=== PATIENT | male | born 1960 | race Two or more races ===

== ENCOUNTER 2024-11-06 06:05 | Inpatient (IN) | payer MEDICAID, SELFPAY ==
[2024-11-06] VITALS (14 sets, daily range): BP systolic 132–194; BP diastolic 86–111; PULSE 88–115; RESP 16–25; TEMP 36.5–36.7; O2SAT 94–98; BMI 31.9; BMI 30.1
--- NOTE | 2024-11-06 06:31 | PD.EDSOB ---
ED SOB =RME/HPI General Chief Complaint: Shortness of Breath/Dyspnea Stated Complaint: DIFFICULTY BREATHING Time Seen by Provider: 11/06/24 06:25 Source: patient Arrival date/time: 11/06/24 06:05 64-year-old male with a history of hypertension presents to the emergency room with a chief complaint of facial swelling and difficulty breathing since yesterday afternoon. Mode of arrival: ambulatory Limitations: no limitations Related Data Previous Rx's ?Medication ?Instructions ?Recorded methocarbamol 750 mg tablet 750 mg PO TID #10 tabs 02/11/20 (Robaxin-750) naproxen 500 mg tablet 500 mg PO BID PRN pain #20 tabs 02/11/20 Allergies Allergy/AdvReac Type Severity Reaction Status Date / Time rivastigmine Allergy Severe BLISTERS/RA Verified 11/06/24 06:10 SH/ITCHING ELECTOR PATCHES Allergy Severe BLISTERS/RA Uncoded 11/06/24 06:10 SH/ITICHING ED Exam General Limitations: Present no limitations Course Orders Category Date Time Status Dexamethasone Inj [Decadron Inj] Med 11/06/24 06:29 Once 10 mg PO X1 ONE DiphenhydrAMINE [Benadryl] Med 11/06/24 06:29 Once 25 mg PO X1 ONE Famotidine [Pepcid] Med 11/06/24 06:29 Once 20 mg PO X1 ONE Vital Signs Vital signs: Vital Signs Temperature 98.0 F 11/06/24 06:28 Pulse Rate 109 H 11/06/24 06:28 Respiratory Rate 20 11/06/24 06:28 Blood Pressure 194/97 H 11/06/24 06:28 Pulse Oximetry (%) 95 11/06/24 06:28 Oxygen Delivery Method Room Air 11/06/24 06:28 Shortness of Breath / Dyspnea Medications / Prescriptions Medication administrations:: Medication Administration History Dexamethasone Sodium Phosphate (Dexamethasone Sod Phos Inj 10 Mg/Ml Vial) 10 mg PO X1 ONE Stop: 11/06/24 06:30 Diphenhydramine HCl (Diphenhydramine Elix 25 Mg/10 Ml Udc) 25 mg PO X1 ONE Stop: 11/06/24 06:30 Famotidine (Famotidine 20 Mg Tablet) 20 mg PO X1 ONE Stop: 11/06/24 06:30 Discharge Plan Prescriptions/Referrals Prescriptions/Med Rec: No Action methocarbamol [Robaxin-750] 750 mg tablet 750 mg PO TID Qty: 10 0RF naproxen 500 mg tablet 500 mg PO BID PRN (Reason: pain) Qty: 20 0RF Patient/Caregiver Discharge Instructions Print Language: Namibian
[2024-11-06] MEDS: FAMOTIDINE 20 MG TABLET PO ×2 (07:53→21:25)
[2024-11-06] MEDS: DiphenhydrAMINE ELIX 25 MG/10 ML UDC PO (07:53)
[2024-11-06] MEDS: DEXAMETHASONE SOD PHOS INJ 10 MG/ML VIAL PO (07:53)
--- NOTE | 2024-11-06 08:39 | XR_ITS ---
Examination: PA lateral chest 2 views TECHNIQUE: Upright PA lateral chest 2 views Exam date and time: November 06, 2024 0848 hours INDICATIONS: Shortness of breath chest pain beginning 3 days ago FINDINGS: Mild CHF Mild enlargement cardiac contour with prominent vascular congestion and septal pulmonary edema Bilateral subsegmental atelectasis IMPRESSION: Mild CHF
[2024-11-06 10:11] LABS: Basophils # (Auto) 0.1 Thou/mm3 (0.0-0.2); Basophils % (Auto) 1 % (0-2.5); Eosinophils # (Auto) 0.1 Thou/mm3 (0.0-0.5); Eosinophils % (Auto) 1 % (0-10); Hematocrit 42.7 % (41.0-53.0); Hemoglobin 15.4 g/dL (13.5-16.0); Immature Granulocytes % (Auto) 1 % (0-0); Immature Granulocytes Auto 0.06 Thou/mm3 (0.00-0.00); Lymphocytes # (Auto) 0.7 Thou/mm3 (1.0-4.8); Lymphocytes % (Auto) 8 % (10-50); Mean Corpuscular HGB Conc 36.1 g/dl (31.0-37.0); Mean Corpuscular Hemoglobin 29.8 pg (25.0-35.0); Mean Corpuscular Volume 83 fL (80-100); Monocytes # (Auto) 0.5 Thou/mm3 (0.0-0.8); Monocytes % (Auto) 6 % (0-12); Neutrophils % (Auto) 83 % (37-80); Nucleated Red Blood Cell % 0 /100 WBC (0); Platelet Count 248 Thou/mm3 (140-440); RDW Standard Deviation 41.9 fL (35.1-43.9); Red Blood Count 5.17 Miln/mm3 (4.50-5.90); White Blood Count 8.5 Thou/mm3 (3.8-10.6)
[2024-11-06 10:24] LABS: Alanine Aminotransferase 70 U/L (10-49); Albumin, Serum 4.5 gm/dL (3.4-4.8); Albumin/Globulin Ratio 1.4 (1.2-2.2); Alkaline Phosphatase 141 U/L (46-116); Anion Gap 7 (7-16); Aspartate Amino Transferase 74 U/L (0-34); BUN/Creatinine Ratio 8 Ratio (12-20); Bilirubin,Total 1.6 mg/dL (0.3-1.2); Blood Urea Nitrogen 6 mg/dL (9-23); Calcium 8.3 mg/dL (8.3-10.6); Calcium (Corrected) 8.3 mg/dL (8.5-10.1); Chloride 89 mMol/L (98-107); Creatinine (Component) 0.8 mg/dL (0.6-1.3); Estimated Creatinine Clearance 107.2 mL/min (>60); Globulin 3.3 gm/dL (2.3-3.5); Glucose 152 mg/dL (74-106); Osmolality,Calculated 246 (275-295); Potassium 3.6 mMol/L (3.4-5.1); Sodium 122 mMol/L (136-145); Total Protein 7.8 gm/dL (5.7-8.2); Troponin I < 0.020 ng/mL (0.0-0.045); eGFR > 60 See Note
[2024-11-06 10:25] LABS: B-Type Natriuretic Peptide 555 pg/mL (0-100)
--- NOTE | 2024-11-06 11:15 | PD.EDRME ---
Rapid Medical Screening Exam RME Arrival date/time: 11/06/24 06:05 64-year-old male with a history of hypertension presents to the emergency room with a chief complaint of facial swelling and difficulty breathing since yesterday afternoon. I have greeted and performed a focused initial assessment of this patient. A comprehensive ED assessment and evaluation of the patient, analysis of all test results, and completion of the medical decision making process will be conducted by additional ED providers. Chief Complaint: Shortness of Breath/Dyspnea Time Seen by Provider: 11/06/24 06:25 Vital signs: Vital Signs Temperature 98.0 F 11/06/24 06:28 Pulse Rate 109 H 11/06/24 06:28 Respiratory Rate 20 11/06/24 06:28 Blood Pressure 194/97 H 11/06/24 06:28 Pulse Oximetry (%) 95 11/06/24 06:28 Oxygen Delivery Method Room Air 11/06/24 06:28 Vital signs reviewed by provider: Yes
--- NOTE | 2024-11-06 11:54 | EKG_ITS ---
[facility] Test Date: 2024-11-06 Pat Name: PHILIP WEBB Department: Room: - Gender: Male Rate Analyst: : 1960 Requested By: Aiyana Cavazos Order Number: [id number] Reading MD: Aiyana Cavazos Measurements Intervals Agency Rate: 104 P: ND: QRS: 56 QRSD: 100 T: 14 QT: 387 QTc: 511 Interpretive Statements ATRIAL FIBRILLATION WITH RAPID VENTRICULAR RESPONSE WITH ABERRANT CONDUCTION OR VENTRICULAR PREMATURE COMPLEXES NONSPECIFIC ST & T-WAVE ABNORMALITY ABNORMAL RHYTHM ECG No previous ECG available for comparison /store/S0/[id number].pdf
--- NOTE | 2024-11-06 11:58 | EDNOTE_ITS ---
ED SOB =RME/HPI General Chief Complaint: Shortness of Breath/Dyspnea Stated Complaint: DIFFICULTY BREATHING Time Seen by Provider: 11/06/24 06:25 Arrival date/time: 11/06/24 06:05 64-year-old male presents to the ED with a complaint of shortness of breath for the past 3 days. He is also complaining of lower extremity edema for the past 7 days and noticed his abdomen has increased in size for the past 3 days as well as his face started swelling since yesterday. He denies any fever chills cough, nausea or vomiting, diarrhea, constipation or abdominal pain. He has a past medical history of hypertension for which he takes amlodipine. He has been seen by his doctor at a clinic in [place] and was told he was suffering from an allergy and was given Claritin and an inhaler for shortness of breath. Mode of arrival: ambulatory Limitations: language barrier (Heating And Cooling Technician utilized) RME / HPI RME / HPI Narrative: 11/06/24 06:05 64-year-old male with a history of hypertension presents to the emergency room with a chief complaint of facial swelling and difficulty breathing since yesterday afternoon. I have greeted and performed a focused initial assessment of this patient. A comprehensive ED assessment and evaluation of the patient, analysis of all test results, and completion of the medical decision making process will be conducted by additional ED providers. MD Complaint: shortness of breath Onset (ago): day(s) (3) Related Data Previous Rx's ?Medication ?Instructions ?Recorded methocarbamol 750 mg tablet 750 mg PO TID #10 tabs (Robaxin-750) naproxen 500 mg tablet 500 mg PO BID PRN pain #20 t abs 02/11/20 Allergies Allergy/AdvReac Type Severity Reaction Status Date / Time rivastigmine Allergy Severe BLISTERS/RA Verified 11/06/24 06:10 SH/ITCHING ELECTOR PATCHES Allergy Severe BLISTERS/RA Uncoded 11/06/24 06:10 SH/ITICHING Review of Systems Review of Systems Systems Reviewed: All systems reviewed, normal except as documented ED Exam Narrative Physical exam: 64-year-old Filipino-speaking male appears with anasarca. He is alert and oriented, no acute distress, trachea is midline, no stridor, normal range of motion of his neck. Lungs are clear, cardiovascular regular rate, irregular rhythm. Abdomen is edematous, soft with minimum to mild generalized tenderness. Lower extremities reveal 3+ pitting edema. General Limitations: Present language barrier (Heating And Cooling Technician utilized) General appearance: Present alert and in no apparent distress Head Head exam: Present atraumatic, normocephalic and normal inspection Eye Eye exam: Present normal appearance and conjunctival injection; Absent scleral icterus ENT ENT exam: Present normal exam Neck Neck exam: Present normal inspection, full ROM and trachea midline Chest Chest inspection: Present normal inspection and symmetric chest wall rise Respiratory Respiratory exam: Present normal lung sounds bilaterally; Absent respiratory distress Cardiovascular Cardiovascular exam: Present regular rate and irregular rhythm; Absent systolic murmur, rubs, gallop or clicks Abdominal Exam Abdominal exam: Present soft, distention and normal bowel sounds; Absent tenderness, guarding, rebound or rigidity Rectal Exam Rectal exam: Present deferred Extremities Exam Extremities exam: Present normal inspection Back Exam Back exam: Present normal inspection and full ROM Neurological Exam Neurological exam: Present alert and oriented X3 Psychiatric Psychiatric exam: Present normal affect and normal mood Skin Skin exam: Present warm, dry, intact and normal color Course Course Course Narrative: 64-year-old male presents to the ED with a complaint of shortness of breath for the past 3 days. He is also complaining of lower extremity edema for the past 7 days and noticed his abdomen has increased in size for the past 3 days as well as his face started swelling since yesterday. He denies any fever chills cough, nausea or vomiting, diarrhea, constipation or abdominal pain. He has a past medical history of hypertension for which he takes amlodipine, he also admits to drinking (4) 40 ounce cans of beer daily. He has been seen by his doctor at a clinic in [place] and was told he was suffering from an allergy and was given Claritin and an inhaler for shortness of breath. 64-year-old Filipino-speaking male appears with anasarca. He is alert and oriented, no acute distress, trachea is midline, no stridor, normal range of motion of his neck. Lungs are clear, cardiovascular regular rate, irregular rhythm. Abdomen is edematous, soft with minimum to mild generalized tenderness. Lower extremities reveal 3+ pitting edema. Initial blood pressure was 194/97 with a pulse of 109. Repeat vitals reveal a blood pressure of 137/107 with a heart rate of 93 and a respiratory rate of 95% with an O2 sat of 96% on room air. CBC reveals a normal white count, normal H&H, normal platelets. CMP reveals a severely low sodium of 122, chloride 89, with a normal potassium of 3.6. BUN is 6, creatinine 0.8, glucos 152. Serum osmolality 246. Calcium and corrected calcium are 8.3 total bili increased at 1.6, AST ALT elevated at 74/70, albumin 4.5, and alk phos 141. BNP is 555 and troponin is less than 0.020. Chest x-ray reveals mild CHF. EKG reveals A-fib with RVR at a rate of 104 with premature ventricular complexes. Additional labs including TSH and urine osmolality ordered and pending to rule out syndrome of inappropriate antidiuretic hormone.. Patient was started on sodium chloride 75 mL/h. Hypertonic saline will likely be initiated by hospitalist service. Abdominal ultrasound ordered to rule out ascites due to the patient's history of consuming 4, 40 ounce beers daily. Hospitalist service was contacted at 1222, Dr. Whittington agrees to admit the patient. Quality Measures none Orders Category Date Time Status Bedside COVID-19 Antigen Test NOW Care 11/06/24 12:00 Active Director Of Strategic Sales Q4H START 00 Care 11/06/24 11:45 Completed EKG (ED ONLY) *Do not use* NOW Care 11/06/24 11:55 Active EKG (ED Only) Stat Exams 11/06/24 11:54 Draft US abdomen limited Stat Exams 11/06/24 12:30 Ordered XR chest 2V Stat Exams 11/06/24 08:39 Completed BNP [B-Type Natriuretic Peptide] Stat Lab 11/06/24 09:48 Completed CBC Stat Lab 11/06/24 09:48 Completed CMP [Comprehensive Metabolic Panel] Stat Lab 11/06/24 09:48 Completed Osmolality, Urine* Stat Lab 11/06/24 Ordered SODIUM NA URINE [Sodium,Urine Random] Stat Lab 11/06/24 12:11 Ordered Thyroid Stimulating Hormone Stat Lab 11/06/24 09:48 Completed Troponin I Stat Lab 11/06/24 09:48 Completed Urea Nitrogen, Random Urine Stat Lab 11/06/24 12:11 Ordered Dexamethasone Inj [Decadron Inj] Med 11/06/24 06:29 Discontinued 10 mg PO X1 ONE DiphenhydrAMINE [Benadryl] Med 11/06/24 06:29 Discontinued 25 mg PO X1 ONE Famotidine [Pepcid] Med 11/06/24 06:29 Discontinued 20 mg PO X1 ONE Sodium Chloride 0.9% 1000 ml [Ns] 1,000 ml Med 11/06/24 12:13 Active IV Q10H Reevaluation(s) Reevaluation #1: Slipped down in bed. Helped to replace patient in semi-wall's position. Time: 12:30 Vital Signs Vital signs: Vital Signs Temperature 98.0 F 11/06/24 06:28 Pulse Rate 109 H 11/06/24 06:28 Respiratory Rate 20 11/06/24 06:28 Blood Pressure 194/97 H 11/06/24 06:28 Pulse Oximetry (%) 95 11/06/24 06:28 Oxygen Delivery Method Room Air 11/06/24 06:28 Shortness of Breath / Dyspnea MDM Narrative MDM Narrative:: 64-year-old male presents to the ED with a complaint of shortness of breath for the past 3 days. He is also complaining of lower extremity edema for the past 7 days and noticed his abdomen has increased in size for the past 3 days as well as his face started swelling since yesterday. He denies any fever chills cough, nausea or vomiting, diarrhea, constipation or abdominal pain. He has a past medical history of hypertension for which he takes amlodipine. He has been seen by his doctor at a clinic in [place] and was told he was suffering from an allergy and was given Claritin and an inhaler for shortness of breath. 64-year-old Filipino-speaking male appears with anasarca. He is alert and oriented, no acute distress, trachea is midline, no stridor, normal range of motion of his neck. Lungs are clear, cardiovascular regular rate, irregular rhythm. Abdomen is edematous, soft with minimum to mild generalized tenderness. Lower extremities reveal 3+ pitting edema. Initial blood pressure was 194/97 with a pulse of 109. Repeat vitals reveal a blood pressure of 137/107 with a heart rate of 93 and a respiratory rate of 95% with an O2 sat of 96% on room air. CBC reveals a normal white count, normal H&H, normal platelets. CMP reveals a severely low sodium of 122, chloride 89, with a normal potassium of 3.6. BUN is 6, creatinine 0.8, glucos 152. Serum osmolality 246. Calcium and corrected calcium are 8.3 total bili increased at 1.6, AST ALT elevated at 74/70, albumin 4.5, and alk phos 141. BNP is 555 and troponin is less than 0.020. Chest x-ray reveals mild CHF. EKG reveals A-fib with RVR at a rate of 104 with premature ventricular complexes. Exam and diagnostic findings indicate the patient with: Severe hyponatremia and hypochloridemia as well as low serum osmolality at 246. Mild CHF on x-ray as well as an elevated BNP of 555. Additional labs including TSH and urine osmolality ordered and pending to rule out syndrome of inappropriate antidiuretic hormone.. Patient was started on sodium chloride 75 mL/h. Hypertonic saline will likely be initiated by hospitalist service. Abdominal ultrasound ordered to rule out ascites due to the patient's history of consuming 4, 40 ounce beers daily. Hospitalist service was contacted at [phone], Dr. Whittington agrees to admit the patient. Patient data External records reviewed:: None Clinical information provided by:: patient Social determinants that could affect healthcare access:: none Patient has the following chronic illnesses:: HTN, Allergies How is presenting disease/condition affected by chronic disease/condition?: uneffected by Evaluation data The following diagnostics were reviewed and interpreted by me:: lab results, radiology exam(s) and EKG tracing(s) Lab and/or radiology exams considered but not ordered:: N/A Interpretation Summary: CBC reveals a normal white count, normal H&H, normal platelets. CMP reveals a severely low sodium of 122, chloride 89, with a normal potassium of 3.6. BUN is 6, creatinine 0.8, glucos 152. Serum osmolality 246. Calcium and corrected calcium are 8.3 total bili increased at 1.6, AST ALT elevated at 74/70, albumin 4.5, and alk phos 141. BNP is 555 and troponin is less than 0.020. Chest x-ray reveals mild CHF. EKG reveals A-fib with RVR at a rate of 104 with premature ventricular complexes. Abdominal US for elevated LFT's ordered and pending at the time of admission. Medications / Prescriptions Medications or Prescriptions considered but not ordered:: N/A Medication administrations:: Medication Administration History Sodium Chloride (Ns) 1,000 mls @ 75 mls/hr IV Q10H ROCIO Stop: 12/06/24 12:12 Last Admin: 11/06/24 12:26 Dose: 75 mls/hr Documented By: MITCH Discontinued Medications Dexamethasone Sodium Phosphate (Dexamethasone Sod Phos Inj 10 Mg/Ml Vial) 10 mg PO X1 ONE Stop: 11/06/24 06:30 Last Admin: 11/06/24 07:53 Dose: 10 mg Documented By: LOIDA Comments: Given PO as ordered Diphenhydramine HCl (Diphenhydramine Elix 25 Mg/10 Ml Udc) 25 mg PO X1 ONE Stop: 11/06/24 06:30 Last Admin: 11/06/24 07:53 Dose: 25 mg Documented By: LOIDA Famotidine (Famotidine 20 Mg Tablet) 20 mg PO X1 ONE Stop: 11/06/24 06:30 Last Admin: 11/06/24 07:53 Dose: 20 mg Documented By: LOIDA Initial medications given in RME included dexamethasone 10 mg p.o., diphenhydramine 25 mg p.o., and famotidine 20 mg p.o. for presumptive allergic reaction. Consultations Consultation(s) initiated? (list below): Yes Consultation #1 (Physician, Specialty, Details): Dr. Keller, Hospitalist agrees to see patient in the ED for possible admission. Time: 12:22 Diagnosis Shortness of Breath Differential Diagnosis: acute exacerbation of chronic obstructive airways disease, congestive heart failure, community acquired pneumonia, asthma with exacerbation and other (Liver failure, anasarca, syndrome of inappropriate antidiuretic hormone) Most likely diagnosis given after review of the tests above:: Severe hyponatremia, CHF, anasarca, portal hypertension Admission Indicated Admission indicated?: indicated Explain why admission is indicated or not indicated:: Patient has severe hyponatremia at 122 with significant hypochloridemia, with a normal potassium level. He also has a serum osmolality decreased at 246. He will need IV fluids for correction but at the same time helping to control his CHF with a current BNP level of 555. Admission Request Was there a request for admission?: Yes Admission Attestation Admission request attestation: Discussed case with Dr. Keller from Hospitalist service regarding admission. Discussed patients ED course, exam findings, labs, and radiology results. The Hospitalist agrees to accept the patient for admission. Disposition Plan Disposition Plan: Admit Discharge Plan Plan Patient Disposition: Admit Acute Care w/in Hospital Discharge Disposition comment: Stable Prescriptions/Referrals Prescriptions/Med Rec: No Action methocarbamol [Robaxin-750] 750 mg tablet 750 mg PO TID Qty: 10 0RF naproxen 500 mg tablet 500 mg PO BID PRN (Reason: pain) Qty: 20 0RF Referrals: Buffy Grace, SLEEVE SEWER [Primary Care Provider] - In 1 week Problem List Clinical Impression: Congestive heart failure, Hyponatremia with decreased serum osmolality, Elevated LFTs, Anasarca Patient/Caregiver Discharge Instructions Print Language: Filipino Stand Alone Forms: Renu Award Info., Patient Portal Info Letter PA/SLEEVE SEWER Supervising Physician PA/SLEEVE SEWER Supervising Physician: Dr. Allen
[2024-11-06] MEDS: SODIUM CHLORIDE 0.9% 1000 ML 1,000 ML 75 ML IV (12:26)
--- NOTE | 2024-11-06 12:30 | XR_ITS ---
Examination: Abdomen sonogram, Limited Date and time of exam: November 06, 2024 1242 hours INDICATIONS: Elevated liver function tests on laboratory examination from today Technique: Real-time bernard scale transabdominal sonographic images of the upper abdomen obtained. Findings: Negative for gallstones Gallbladder wall at least 0.52 cm no definite edema Common bile duct 0.3 cm Pancreatic head 3.8 cm Liver 18.9 cm fatty infiltration Normal hepatopedal portal venous flow Patent IVC IMPRESSION: Consider MRCP follow-up to exclude cholecystitis and exclude pancreatitis or pancreatic mass
[2024-11-06 12:36] LABS: Thyroid Stimulating Hormone 1.79 uIU/mL (0.55-4.78)
--- NOTE | 2024-11-06 12:59 | PD.HHHP ---
Documentation for date of: 11/06/24 HPI - Hospitalist History of Present Illness History of present illness: Patient is a 64-year-old male with past medical history of hypertension, asthma, chronic tobacco use and seasonal allergies who presented to the ED. Patient worsening shortness of breath, swelling of his face and lower extremities. Patient states that has been worsening for the past 7 days and it has been increasing for the past 3 days. He denies any chest pain, nausea, vomiting, diarrhea, dysuria,dizziness, lightheadedness, visual changes, with dominal distention or abdominal pain. Patient states he was very short of breath this morning when he came to the hospital, now improved. He also endorses having orthopnea increased dyspnea on exertion. Upon presentation to the ED, patient was noted to have hyponatremia with a sodium of 122 serum osmolality of 246. Per med rec, patient had hydrochlorothiazide prescribed in the past, but patient states that he does not take it. He takes amlodipine 10 mg p.o. daily with cetirizine 10 mg p.o. tablet once daily. He also has an albuterol inhaler at home. His bilirubin is also noted to be elevated at 1.6 and AST/ ALT is 74/0. Alk phos is also elevated 141. However, abdominal ultrasound is negative for any gallstones or dilated CBD or obstruction. Patient does endorse drinking 440 ounce cans of beer daily. He endorses having anxiety if he stops drinking. His last drink was yesterday. Hospitalist service was called for admission for further workup medical management of hyponatremia. Past medical history: As above Surgical Hx: hydrocoele, tonsil removal Sochx: 50 pack year of tobacco use, admits to alcohol use 4 x 40oz beers daily, denies drug use Meds Home Medications and Allergies Allergies Allergy/AdvReac Type Severity Reaction Status Date / Time rivastigmine Allergy Severe BLISTERS/RA Verified 11/06/24 14:16 SH/ITCHING Exam Vital Signs Temp Pulse Resp BP Pulse Ox O2 Del Method 97.7 F 93 25 H 137/107 H 96 Room Air 11/06/24 11:31 11/06/24 11:41 11/06/24 11:31 11/06/24 11:31 11/06/24 11:31 11/06/24 11:31 Narrative Gen: No acute distress HEENT: NCAT, PERRLOU, Sclera anicteric, conjunctiva noninjected, oral mucosa moist without erythema Neck: Supple, full range of motion, no LAD CV: RRR, no murmurs, rubs or gallops Resp: CTAB/L, no wheezing, rhonchi or rales GI: abdomen soft, protuberant, bowel sounds noted, no tenderness to palpation, no guarding or rebound tenderness, no organomegaly Skin: clean, dry, no rashes, lesions or ecchymosis Ext: 1+ pitting edema in b/l hands, 3+ pitting edema in b/l LE Neuro: A&O x3, CN II- XII intact b/l, no focal neurological deficits Results - Hospitalist Labs Diagrams: 11/06/24 09:48 11/06/24 09:48 Labs: Short CBC 11/06/24 Range/Units 09:48 WBC 8.5 (3.8-10.6) Thou/mm3 Hgb 15.4 (13.5-16.0) g/dL Hct 42.7 (41.0-53.0) % Plt Count 248 (140-440) Thou/mm3 BMP 11/06/24 09:48 Sodium 122 L Potassium 3.6 Chloride 89 L Carbon Dioxide 26.0 BUN 6 L Creatinine 0.8 Glucose 152 H Calcium 8.3 Cardiac Enzymes 11/06/24 Range/Units 09:48 Troponin I < 0.020 (0.0-0.045) ng/mL Liver Function 11/06/24 Range/Units 09:48 Total Bilirubin 1.6 H (0.3-1.2) mg/dL AST 74 H (0-34) U/L ALT 70 H (10-49) U/L Alkaline Phosphatase 141 H (46-116) U/L Albumin 4.5 (3.4-4.8) gm/dL Assessment & Plan -Hospitalist Patient Synopsis Patient is a 64-year-old male with past medical history of hypertension, asthma, chronic tobacco use and seasonal allergies who presented to the ED. Patient worsening shortness of breath, swelling of his face and lower extremities. Patient states that has been worsening for the past 7 days and it has been increasing for the past 3 days. He denies any chest pain, nausea, vomiting, diarrhea, dysuria,dizziness, lightheadedness, visual changes, with dominal distention or abdominal pain. Patient states he was very short of breath this morning when he came to the hospital, now improved. He also endorses having orthopnea increased dyspnea on exertion. Upon presentation to the ED, patient was noted to have hyponatremia with a sodium of 122 serum osmolality of 246. Per med rec, patient had hydrochlorothiazide prescribed in the past, but patient states that he does not take it. He takes amlodipine 10 mg p.o. daily with cetirizine 10 mg p.o. tablet once daily. He also has an albuterol inhaler at home. His bilirubin is also noted to be elevated at 1.6 and AST/ ALT is 74/0. Alk phos is also elevated 141. However, abdominal ultrasound is negative for any gallstones or dilated CBD or obstruction. Patient does endorse drinking 440 ounce cans of beer daily. He endorses having anxiety if he stops drinking. His last drink was yesterday. Hospitalist service was called for admission for further workup medical management of hyponatremia. Hypervolemic hypotonic hyponatremia Anasarca - presented with sodium of 122 and serum osmol of 246. Pp - denies use of HCTZ - will fluid restrict 1200mL qshift - trend sodium q6hr - will give one dose of lasix due to fluid overload - pending echocardiogram to rule out other causes of anasarca - nephrology consulted and case discussed over the phone, recommends obtaining urine cr/na ratio Chronic Alcohol use - patient drinks 4 large beers daily and admits to having anxiety when he does not drink. Denies withdrawal seizures in the past - started on CIWA protocol - hold of on librium at this time as it can worsen hypnatremia Transaminitis - possible congestive hepatopathy - no CBD obstruction noted on RUQ US - will monitor LFTs closely Hypertension - started on coreg 3.125mg PO BID - hold home amlodipine as it can worsen b/l LE edema - DC IV fluids Nutrition: regular diet DVT Prophylaxis: lovenox Code Status: full code Disposition: tele Quality Measures Quality Measures VTE prophylaxis (lovenox )
[2024-11-06] MEDS: FUROSEMIDE INJ 10 MG/ML 4ML VIAL 40 MG IVP ×2 (13:16→21:27)
[2024-11-06 13:34] LABS: Creatinine,Random Urine < 13 mg/dL (30-125)
[2024-11-06 13:40] LABS: Sodium,Urine Random < 10.0 mMol/L (20.0-110.0)
[2024-11-06 14:09] LABS: Partial Thromboplastin Time 31.3 Seconds (22.0-36.0)
[2024-11-06] MEDS: carVEDILOL 3.125 MG TABLET PO ×2 (15:28→21:25)
[2024-11-06] MEDS: ENOXAPARIN SOD INJ 40 MG/0.4 ML SYRINGE SC (15:31)
[2024-11-06 17:56] LABS: Sodium 134 mMol/L (136-145)
[2024-11-06] MEDS: ACETAMINOPHEN 325 MG TABLET 650 MG PO (21:26)
[2024-11-06] MEDS: FOLIC ACID 1 MG TABLET PO (21:27)
[2024-11-06] MEDS: THIAMINE 100 MG TABLET PO (22:43)
[2024-11-07] VITALS (13 sets, daily range): BP systolic 123–147; BP diastolic 77–94; PULSE 69–98; RESP 17–25; TEMP 36.1–36.7; O2SAT 96–100
--- NOTE | 2024-11-07 00:26 | EKG_ITS ---
[facility] Test Date: 2024-11-07 Pat Name: PHILIP WEBB [facility] Director Of Training: JESSETIM : 1960 Requested By: Dwayne Blackmon Order Number: [id number] Reading MD: Dwayne Blackmon Measurements Intervals [place] Rate: 66 P: ME: QRS: 67 QRSD: 84 T: 0 QT: 424 QTc: 447 Interpretive Statements ATRIAL FIBRILLATION NONSPECIFIC T-WAVE ABNORMALITY ABNORMAL RHYTHM ECG Compared to ECG 11/06/2024 12:13:10 Ventricular premature complex(es) no longer present Aberrant conduction of supraventricular beat(s) no longer present T-wave abnormality still present /store/S0/[id number]/[id number].pdf
--- NOTE | 2024-11-07 00:31 | PD.EVENT ---
Documentation for date of: 11/07/24 Event Note Event Note: EKG showed atrial fibrillation. Will perform an A-fib workup.
[2024-11-07 00:48] LABS: Sodium 138 mMol/L (136-145)
[2024-11-07] MEDS: LORazepam 0.5 MG TABLET PO (03:50)
[2024-11-07 06:58] LABS: Basophils % (Auto) 0 % (0-2.5); Eosinophils % (Auto) 0 % (0-10); Hematocrit 42.5 % (41.0-53.0); Hemoglobin 14.4 g/dL (13.5-16.0); Immature Granulocytes % (Auto) 1 % (0-0); Immature Granulocytes Auto 0.09 Thou/mm3 (0.00-0.00); Lymphocytes # (Auto) 0.6 Thou/mm3 (1.0-4.8); Lymphocytes % (Auto) 4 % (10-50); Mean Corpuscular HGB Conc 33.9 g/dl (31.0-37.0); Mean Corpuscular Hemoglobin 29.4 pg (25.0-35.0); Mean Corpuscular Volume 87 fL (80-100); Monocytes # (Auto) 1.2 Thou/mm3 (0.0-0.8); Monocytes % (Auto) 8 % (0-12); Neutrophils # (Auto) 13.7 Thou/mm3 (1.8-7.7); Neutrophils % (Auto) 88 % (37-80); Nucleated Red Blood Cell % 0 /100 WBC (0); Platelet Count 257 Thou/mm3 (140-440); RDW Standard Deviation 46.7 fL (35.1-43.9); Red Blood Count 4.89 Miln/mm3 (4.50-5.90); White Blood Count 15.6 Thou/mm3 (3.8-10.6)
[2024-11-07 07:54] LABS: Alanine Aminotransferase 58 U/L (10-49); Albumin/Globulin Ratio 1.3 (1.2-2.2); Alkaline Phosphatase 108 U/L (46-116); Anion Gap 7 (7-16); Aspartate Amino Transferase 53 U/L (0-34); BUN/Creatinine Ratio 14 Ratio (12-20); Bilirubin,Total 1.2 mg/dL (0.3-1.2); Blood Urea Nitrogen 14 mg/dL (9-23); Calcium 8.5 mg/dL (8.3-10.6); Calcium (Corrected) 8.5 mg/dL (8.5-10.1); Carbon Dioxide 29.6 mMol/L (20.0-31.0); Chloride 103 mMol/L (98-107); Estimated Creatinine Clearance 89.8 mL/min (>60); Free T4 (Free Thyroxine) 1.02 ng/dL (0.89-1.76); Glucose 151 mg/dL (74-106); Magnesium 2.2 mg/dL (1.6-2.6); Osmolality,Calculated 282 (275-295); Phosphorous 2.9 mg/dL (2.4-5.1); Potassium 3.4 mMol/L (3.4-5.1); Sodium 140 mMol/L (136-145); Thyroid Stimulating Hormone 1.81 uIU/mL (0.55-4.78); eGFR > 60 See Note
[2024-11-07] MEDS: LIDOCAINE 5% 1 PATCH TOP (08:48)
[2024-11-07 08:49] LABS: Glucose Estimated Average 123 mg/dL (80-131); Hemoglobin A1C 5.9 % Hgb (4.8-6.0)
[2024-11-07] MEDS: FUROSEMIDE INJ 10 MG/ML 4ML VIAL 40 MG IVP (08:50)
[2024-11-07] MEDS: FOLIC ACID 1 MG TABLET PO ×2 (08:52→20:09)
[2024-11-07] MEDS: carVEDILOL 3.125 MG TABLET PO ×2 (08:52→20:09)
[2024-11-07] MEDS: FAMOTIDINE 20 MG TABLET PO (08:52)
[2024-11-07] MEDS: POTASSIUM CHLORIDE 20 mEq TABCR 40 MEQ PO (08:52)
[2024-11-07] MEDS: ACETAMINOPHEN 325 MG TABLET 650 MG PO (08:53)
[2024-11-07] MEDS: ENOXAPARIN SOD INJ 40 MG/0.4 ML SYRINGE SC (08:53)
--- NOTE | 2024-11-07 09:41 | PD.RESCONSUL ---
HPI Data of Consult Patient: new to practice Consult date: 11/06/24 Requesting Physician: Neetu Keller DO Admitting Provider: Neetu Keller DO Attending Provider: Neetu Keller DO Primary Care Provider: BRITTANI Wright Consult Narrative History of present illness: Mr Najera is a 64-year-old male with past medical history of hypertension, asthma, chronic tobacco use and seasonal allergies who presented to the ED. Patient worsening shortness of breath, swelling of his face and lower extremities. Patient states that has been worsening for the past 7 days and it has been increasing for the past 3 days. He denies any chest pain, nausea, vomiting, diarrhea, dysuria,dizziness, lightheadedness, visual changes, with dominal distention or abdominal pain. Patient states he was very short of breath this morning when he came to the hospital, now improved. He also endorses having orthopnea increased dyspnea on exertion. Upon presentation to the ED, patient was noted to have hyponatremia with a sodium of 122 serum osmolality of 246. Per med rec, patient had hydrochlorothiazide prescribed in the past, but patient states that he does not take it. He takes amlodipine 10 mg p.o. daily with cetirizine 10 mg p.o. tablet once daily. He also has an albuterol inhaler at home. His bilirubin is also noted to be elevated at 1.6 and AST/ ALT is 74/0. Alk phos is also elevated 141. However, abdominal ultrasound is negative for any gallstones or dilated CBD or obstruction. Patient does endorse drinking 440 ounce cans of beer daily. He endorses having anxiety if he stops drinking. His last drink was yesterday. Hospitalist service was called for admission for further workup medical management of hyponatremia. Nephrology consulted in setting of hypervolemic hyponatremia. 11/07/2024: Labs and vitals reviewed, patient sodium overcorrected from 122 to 140 in 24 hours, patient was given 3 doses of IV Lasix, this morning patient does look euvolemic, on room air, has no current complaints. Ordered strict intake and output, no urine output charted from yesterday. Patient started on D5W 100 cc/h, will plan for goal sodium 130-135 today we will consider desmopressin if sodium does not downtrend. Will continue strict monitoring of sodium every 4 hours. cc:: cc: Neetu Keller DO Review of Systems Review of Systems Systems Reviewed: All systems reviewed, normal except as documented Past Medical History Past Medical History Comments PMH COMMENT: Past medical history: As above Surgical Hx: hydrocoele, tonsil removal Sochx: 50 pack year of tobacco use, admits to alcohol use 4 x 40oz beers daily, denies drug use Exam Vital Signs Temp Pulse Resp BP Pulse Ox O2 Del Method 97.3 F 87 25 H 144/94 H 97 Room Air 11/07/24 08:00 11/07/24 08:52 11/07/24 08:00 11/07/24 08:52 11/07/24 08:00 11/07/24 08:00 Narrative Exam Gen: No acute distress HEENT: NCAT, PERRLOU, Sclera anicteric, conjunctiva noninjected, oral mucosa moist without erythema Neck: Supple, full range of motion, no LAD CV: RRR, no murmurs, rubs or gallops Resp: CTAB/L, no wheezing, rhonchi or rales GI: abdomen soft, protuberant, bowel sounds noted, no tenderness to palpation, no guarding or rebound tenderness, no organomegaly Skin: clean, dry, no rashes, lesions or ecchymosis Ext: trace pitting edema in b/l LE Neuro: A&O x3, CN II- XII intact b/l, no focal neurological deficits Results Labs 11/09/24 05:15 11/09/24 05:15 Labs: Short CBC 11/06/24 11/07/24 Range/Units 09:48 06:27 WBC 8.5 15.6 H D (3.8-10.6) Thou/mm3 Hgb 15.4 14.4 (13.5-16.0) g/dL Hct 42.7 42.5 (41.0-53.0) % Plt Count 248 257 (140-440) Thou/mm3 BMP 11/06/24 11/06/24 11/07/24 09:48 17:31 00:19 Sodium 122 L 134 L D 138 Potassium 3.6 Chloride 89 L Carbon Dioxide 26.0 BUN 6 L Creatinine 0.8 Glucose 152 H Calcium 8.3 11/07/24 06:27 Sodium 140 Potassium 3.4 Chloride 103 Carbon Dioxide 29.6 BUN 14 Creatinine 1.0 Glucose 151 H Calcium 8.5 Cardiac Enzymes 11/06/24 Range/Units 09:48 Troponin I < 0.020 (0.0-0.045) ng/mL Liver Function 11/06/24 11/07/24 Range/Units 09:48 06:27 Total Bilirubin 1.6 H 1.2 (0.3-1.2) mg/dL AST 74 H 53 H (0-34) U/L ALT 70 H 58 H (10-49) U/L Alkaline Phosphatase 141 H 108 D (46-116) U/L Albumin 4.5 4.0 D (3.4-4.8) gm/dL Quality Measures Quality Measures VTE prophylaxis (lovenox ) Medications Home Medications and Allergies Home Medications ?Medication ?Instructions ?Recorded ?Confirmed ?Type amlodipine 10 mg tablet 10 mg PO 1XD 11/06/24 11/06/24 History cetirizine 10 mg tablet 10 mg PO 1XD 11/06/24 11/06/24 History Allergies Allergy/AdvReac Type Severity Reaction Status Date / Time rivastigmine Allergy Severe BLISTERS/RA Verified 11/06/24 14:16 SH/ITCHING Visit Medications Acetaminophen (Acetaminophen 325 Mg Tablet) 650 mg PO Q6H PRN PRN Reason: Fever >101.5 Stop: 12/06/24 12:49 Albuterol/Ipratropium (Albuterol/Ipratropium (Duoneb) Rt Brandy 3 Ml Nebu) 3 ml INH Q6HRRT PRN PRN Reason: Shortness of breath Stop: 12/06/24 12:59 Carvedilol (Carvedilol 3.125 Mg Tablet) 3.125 mg PO BID [facility] Stop: 12/06/24 14:44 Last Admin: 11/07/24 08:52 Dose: 3.125 mg Enoxaparin Sodium (Enoxaparin Sod Inj 40 Mg/0.4 Ml Syringe) 40 mg SC QDAY [facility] Stop: 11/20/24 12:59 Last Admin: 11/07/24 08:53 Dose: 40 mg Famotidine (Famotidine 20 Mg Tablet) 20 mg PO BID [facility] Stop: 12/06/24 20:59 Last Admin: 11/07/24 08:52 Dose: 20 mg Folic Acid (Folic Acid 1 Mg Tablet) 1 mg PO BID [facility] Stop: 11/11/24 20:59 Last Admin: 11/07/24 08:52 Dose: 1 mg Furosemide (Furosemide Inj 10 Mg/Ml 4ml Vial) 40 mg IVP BID [facility] Stop: 12/06/24 20:59 Last Admin: 11/07/24 08:50 Dose: 40 mg Lidocaine (Lidocaine 5% 1 Patch) 1 patch TOP DAILY PRN PRN Reason: BACK PAIN Stop: 12/07/24 08:16 Last Admin: 11/07/24 08:48 Dose: 1 patch Lorazepam (Lorazepam 2 Mg/Ml Vial) 0.5 mg IV Q2HR PRN PRN Reason: CIWA SCORE 7-13 Stop: 11/11/24 12:49 Lorazepam (Lorazepam 0.5 Mg Tablet) 0.5 mg PO Q4HR PRN PRN Reason: CIWA Score 2-6 Stop: 11/11/24 12:49 Last Admin: 11/07/24 03:50 Dose: 0.5 mg Lorazepam (Lorazepam 2 Mg/Ml Vial) 1 mg IV X1 PRN PRN Reason: Breakthrough Agitation Lorazepam (Lorazepam 0.5 Mg Tablet) 2 mg PO Q4HR PRN PRN Reason: CIWA SCORE 12-15 Stop: 11/11/24 12:49 Lorazepam (Lorazepam 2 Mg/Ml Vial) 1 mg IV Q2HR PRN PRN Reason: CIWA SCORE 14-19 Stop: 11/11/24 12:54 Ondansetron HCl (Ondansetron Inj 2 Mg/Ml Inj 2 Ml) 4 mg IV Q6H PRN; Protocol PRN Reason: NAUSEA OR VOMITING Stop: 12/06/24 12:49 Discontinued Medications Acetaminophen (Acetaminophen 325 Mg Tablet) 650 mg PO Q6H PRN PRN Reason: Fever >101.5 Stop: 12/06/24 12:49 Last Admin: 11/07/24 08:53 Dose: 650 mg Dexamethasone Sodium Phosphate (Dexamethasone Sod Phos Inj 10 Mg/Ml Vial) 10 mg PO X1 ONE Stop: 11/06/24 06:30 Last Admin: 11/06/24 07:53 Dose: 10 mg Diphenhydramine HCl (Diphenhydramine Elix 25 Mg/10 Ml Udc) 25 mg PO X1 ONE Stop: 11/06/24 06:30 Last Admin: 11/06/24 07:53 Dose: 25 mg Famotidine (Famotidine 20 Mg Tablet) 20 mg PO X1 ONE Stop: 11/06/24 06:30 Last Admin: 11/06/24 07:53 Dose: 20 mg Furosemide (Furosemide Inj 10 Mg/Ml 4ml Vial) 40 mg IVP X1 ONE Stop: 11/06/24 13:01 Last Admin: 11/06/24 13:16 Dose: 40 mg Sodium Chloride (Ns) 1,000 mls @ 75 mls/hr IV Q10H [facility] Stop: 12/06/24 12:12 Last Infusion: 11/06/24 13:35 Dose: 0 mls/hr Potassium Chloride (Potassium Chloride 20 Meq Tabcr) 40 meq PO X1 ONE Stop: 11/07/24 08:15 Last Admin: 11/07/24 08:52 Dose: 40 meq Thiamine HCl (Thiamine 100 Mg Tablet) 100 mg PO BID [facility] Stop: 11/11/24 20:59 Last Admin: 11/06/24 22:05 Dose: Not Given Thiamine HCl (Thiamine 100 Mg Tablet) 100 mg PO X1 ONE Stop: 11/06/24 21:41 Last Admin: 11/06/24 22:43 Dose: 100 mg Assessment & Plan Plan Assessment and Plan: Mr Najera is a 64-year-old male with past medical history of hypertension, asthma, chronic tobacco use and seasonal allergies who presented to the ED for worsening shortness of breath, swelling of his face and lower extremities. #Hypervolemic hypotonic hyponatremia #Concern of overcorrection of sodium Presented with sodium of 122 and serum osmol of 246. Sodium corrected to 140 in 24 hours. Correction by 18 mmol/L Patient's underlying etiology multifactorial hypervolemia secondary to CHF and beer potomania, patient admits to drinking about 4 cans of beer daily. Denies use of HCTZ. - Started on D5W 100 cc/h was increased to 150 cc/h after sodium reading of 141 - Hold diuresis - Patient will be given 2 mcg x 1 desmopressin - Monitor sodium every 4 hours - Consider another dose of 2 mcg x 1 desmopressin if sodium not at goal in 24 hours - Goal sodium for AM 132 - Monitor fluid status, if patient looks fluid overloaded consider discontinuing D5W. - Cardiology is consulted by primary team, pending echocardiogram #Chronic Alcohol use #Transaminitis #Hypertension - Management per primary team Case discussed with Attending Dr. Muñoz. Sandra Oliver PGY1 Disclaimer: This note was dictated by speech recognition. Minor errors in director of acquisition marketing may be present due to voice recognition software. Attending Provider Attestation/Addendum Pt is seen and examined. Labs and investigations are reviewed. Agree witth assessment and plan by resident. agree with findings. Chai Muñoz MD
[2024-11-07 10:40] LABS: Sodium 139 mMol/L (136-145)
[2024-11-07] MEDS: DEXTROSE 5%-WATER 1,000 ML 100 ML IV (11:00)
--- NOTE | 2024-11-07 12:05 | EKG_ITS ---
[facility] Test Date: 2024-11-07 Pat Name: PHILIP WEBB [facility] Medical Pathologist: OSCAR : 1960 Requested By: Ryan Anton Order Number: [id number] Reading MD: Ryan Anton Measurements Intervals [place] Rate: 73 P: ND: QRS: 37 QRSD: 94 T: 60 QT: 402 QTc: 446 Interpretive Statements ATRIAL FIBRILLATION NONSPECIFIC T-WAVE ABNORMALITY ABNORMAL RHYTHM ECG Compared to ECG 11/07/2024 00:55:22 No significant changes /store/S0/[id number]/ecg/[id number].pdf
--- NOTE | 2024-11-07 12:05 | XR_ITS ---
Examination: AP chest single view TECHNIQUE: AP portable sitting chest single view Examination type: November 07, 2024 1212 hours Comparison November 06, 2024 INDICATIONS: Mild chronic heart failure pattern Mild enlargement cardiac contour Prominent vascular congestion. Mild septal edema at the lung bases IMPRESSION: Mild CHF No free air depicted
--- NOTE | 2024-11-07 12:07 | PD.RESEVENT ---
Documentation for date of: 11/07/24 Event Note Event Note: Rapid response was called around noon due to chest pain Vitals on arrival 146/94, heart rate in the 80s, when speaking to the patient patient denies any chest pain states he feels more like stretching of the abdomen when he breathes. Chest x-ray, troponins, EKG were ordered pending cardiology recommendations. Case discussed with my attending Dr. Keller. Ryan Anton MD PGY-1
[2024-11-07] MEDS: PANTOPRAZOLE INJ 40 MG VIAL IV (12:31)
[2024-11-07 12:52] LABS: Troponin I < 0.020 ng/mL (0.0-0.045)
[2024-11-07 14:27] LABS: Sodium 141 mMol/L (136-145)
[2024-11-07] MEDS: DESMOPRESSIN ACETATE 4 MCG/ML VIAL 2 MCG IV (15:16)
[2024-11-07] MEDS: DEXTROSE 5%-WATER 1,000 ML 150 ML IV (15:16)
--- NOTE | 2024-11-07 15:28 | PD.RESPRO ---
Documentation for date of: 11/07/24 Subjective Subjective Interval history: Patient was seen and examined at bedside this AM. He had episodes of A.Fib RVR overnight, EKG taken showed AFib HR 70s Patient tolerating diet, adequate urine output and mentation is at baseline. He denies any chest discomfort, but has epigastric tenderness. Trops negative. Cardiology is consulted for further evaluation. Exam Vital Signs Temp Pulse Resp BP Pulse Ox O2 Del Method 97.5 F 89 17 138/94 H 98 Room Air 11/07/24 12:00 11/07/24 12:00 11/07/24 12:00 11/07/24 12:00 11/07/24 12:00 11/07/24 12:00 Narrative Exam Constitutional Alert, oriented x3. Obese HEENT Vision grossly intact. Patent nares. Trachea midline. Respiratory Chest normal on inspection and clear to auscultation bilaterally. Cardiovascular S1 and S2 audible, irregularly irregular. No murmurs or carotid bruit. No gross JVD. Abdominal Soft, protuberant, non tender to palpation in all quadrants. BS + Genitourinary No bladder tenderness, no flank pain. Normal to palpation. Musculoskeletal Extremities tone within normal limits. No LE edema. Neurological CN II - XII grossly intact. Extremity motor and sensation grossly intact. Skin Warm, dry and intact. No apparent lesions. Psychiatric Patient has a good affect, is cooperative. Objective Labs 11/08/24 05:05 11/08/24 05:05 Labs: Laboratory Results - last 24 hr 11/06/24 11/07/24 11/07/24 17:31 00:19 06:27 WBC 15.6 H D RBC 4.89 Hgb 14.4 Hct 42.5 MCV 87 MCH 29.4 MCHC 33.9 RDW Std Deviation 46.7 H Plt Count 257 Neut % (Auto) 88 H Lymph % (Auto) 4 L [place] % (Auto) 8 Eos % (Auto) 0 Baso % (Auto) 0 Neut # (Auto) 13.7 H Lymph # (Auto) 0.6 L [place] # (Auto) 1.2 H Eos # (Auto) 0.0 Baso # (Auto) 0.0 Immature Gran # (Auto) 0.09 H Absolute Nucleated RBC 0.00 Immature Gran % 1 H Nucleated RBC % 0 Sodium 134 L D 138 140 Potassium 3.4 Chloride 103 Carbon Dioxide 29.6 Anion Gap 7 BUN 14 Creatinine 1.0 Estim Creat Clear Calc 89.8 eGFR > 60 BUN/Creatinine Ratio [address]ucose [address] Glu mg/dL 123 Hemoglobin A1c 5.9 Calculated Osmolality 282 Calcium 8.5 Corrected Calcium 8.5 Phosphorus 2.9 Magnesium 2.2 Total Bilirubin 1.2 AST 53 H ALT 58 H Alkaline Phosphatase 108 D Troponin I Total Protein 7.0 Albumin 4.0 D Globulin 3.0 Albumin/Globulin Ratio 1.3 TSH 1.81 Free T4 1.02 11/07/24 11/07/24 11/07/24 10:00 12:15 12:45 WBC RBC Hgb Hct MCV MCH MCHC RDW Std Deviation Plt Count Neut % (Auto) Lymph % (Auto) [place] % (Auto) Eos % (Auto) Baso % (Auto) Neut # (Auto) Lymph # (Auto) [place] # (Auto) Eos # (Auto) Baso # (Auto) Immature Gran # (Auto) Absolute Nucleated RBC Immature Gran % Nucleated RBC % Sodium 139 141 Potassium Chloride Carbon Dioxide Anion Gap BUN Creatinine Estim Creat Clear Calc eGFR BUN/Creatinine Ratio Glucose Estimated Ave Glu mg/dL Hemoglobin A1c Calculated Osmolality Calcium Corrected Calcium Phosphorus Magnesium Total Bilirubin AST ALT Alkaline Phosphatase Troponin I < 0.020 Total Protein Albumin Globulin Albumin/Globulin Ratio TSH Free T4 Quality Measures Quality Measures VTE prophylaxis (lovenox ) Assessment & Plan Assessment Current Active Medications: Generic Name Dose Route Start Last Admin Trade Name Freq PRN Reason Stop Dose Admin Acetaminophen 650 mg 11/07/24 08:58 Acetaminophen 325 Mg Tablet PO 12/06/24 12:49 Q6H PRN Fever >101.5 Albuterol/Ipratropium 3 ml 11/06/24 12:50 Albuterol/Ipratropium (Duoneb) Rt Brandy 3 Ml Nebu INH 12/06/24 12:59 Q6HRRT PRN Shortness of breath Carvedilol 3.125 mg 11/06/24 14:45 11/07/24 08:52 Carvedilol 3.125 Mg Tablet PO 12/06/24 14:44 3.125 mg BID ROCIO Administration Enoxaparin Sodium 40 mg 11/06/24 13:00 11/07/24 08:53 Enoxaparin Sod Inj 40 Mg/0.4 Ml Syringe SC 11/20/24 12:59 40 mg QDAY ROCIO Administration Folic Acid 1 mg 11/06/24 21:00 11/07/24 08:52 Folic Acid 1 Mg Tablet PO 11/11/24 20:59 1 mg BID ROCIO Administration Furosemide 40 mg 11/06/24 21:00 11/07/24 08:50 Furosemide Inj 10 Mg/Ml 4ml Vial IVP 12/06/24 20:59 40 mg BID ROCIO Administration Dextrose 1,000 mls @ 150 mls/hr 11/07/24 14:45 11/07/24 15:16 D5w IV 12/07/24 14:44 150 mls/hr .Q6H40M ROCIO Administration Lidocaine 1 patch 11/07/24 08:17 11/07/24 08:48 Lidocaine 5% 1 Patch TOP 12/07/24 08:16 1 patch DAILY PRN Administration BACK PAIN Lorazepam 0.5 mg 11/06/24 12:50 Lorazepam 2 Mg/Ml Vial IV 11/11/24 12:49 Q2HR PRN CIWA SCORE 7-13 Lorazepam 0.5 mg 11/06/24 12:50 11/07/24 03:50 Lorazepam 0.5 Mg Tablet PO 11/11/24 12:49 0.5 mg Q4HR PRN Administration CIWA Score 2-6 Lorazepam 1 mg 11/06/24 12:50 Lorazepam 2 Mg/Ml Vial IV X1 PRN Breakthrough Agitation Lorazepam 2 mg 11/06/24 12:50 Lorazepam 0.5 Mg Tablet PO 11/11/24 12:49 Q4HR PRN CIWA SCORE 12-15 Lorazepam 1 mg 11/06/24 12:55 Lorazepam 2 Mg/Ml Vial IV 11/11/24 12:54 Q2HR PRN CIWA SCORE 14-19 Ondansetron HCl 4 mg 11/06/24 12:50 Ondansetron Inj 2 Mg/Ml Inj 2 Ml IV 12/06/24 12:49 Q6H PRN NAUSEA OR VOMITING Protocol Pantoprazole Sodium 40 mg 11/07/24 12:00 11/07/24 12:31 Pantoprazole Inj 40 Mg Vial IV 12/07/24 11:59 40 mg QDAY ROCIO Administration Plan Mr Najera is a 64-year-old male with past medical history of hypertension, asthma, chronic tobacco use and seasonal allergies who presented to the ED. Patient worsening shortness of breath, swelling of his face and lower extremities, and hyponatremia on lab work. Known history of alcohol use disorder. Hypervolemic hypotonic hyponatremia - resolved Anasarca - improving - presented with sodium of 122 and serum osmol of 246 - Na 122 -> 134 -> 138 -> 141 - denies use of HCTZ Plan: - will fluid restrict 1200mL qshift - nephrology consulted, appreciate recommendations - Desmopressin 2 mcg x1 given - D5W @ 100cc/h started by nephro - HOLD IV Lasix 40mg - pending echocardiogram to rule out wall motion abnormalities Chronic Alcohol use - patient drinks 4 large beers daily and admits to having anxiety when he does not drink. - Patient does endorse drinking 440 ounce cans of beer daily. - Denies withdrawal seizures in the past - No banana bag or supplements given on admission Plan: - On PRN CIWA protocol - Seizure precautions in place - Thiamine 100mg IV qD x5d - Folic acid 1mg BD - student services counselor referral placed - Pt counseled about alcohol use - hold of on librium at this time as it can worsen hyponatremia Atrial Fibrillation NVR Assessment: Chronic, EKG shows AFib; rate controlled (HR 77) - EKG: A. Fib with RVR , HR 70s - Type: New onset, paroxysmal - Intermittent episodes of palpitations with spontaneous return to sinus - CHADsVASc score = 3 ; 3.2% stroke risk annually - HASBLED score = 1 ; Low risk of major bleeding Plan: - Rate control: Carvedilol 12.5 mg PO BIDWM - Continue to monitor Telemetry - Cardiology Dr Hodge is consulted, pending recommendations Transaminitis - possible congestive hepatopathy : bilirubin is also noted to be elevated at 1.6 and AST/ ALT is 74/0, Alk phos is also elevated 141. - no CBD obstruction noted on RUQ US Plan: - abdominal ultrasound is negative for any gallstones or dilated CBD or obstruction. - will monitor LFTs closely Primary Hypertension Plan: - started on coreg 3.125mg PO BID - hold home amlodipine as it can worsen b/l LE edema - DC IV fluids Health maintenance: Disposition: MedSurg -> Tele. Pending Cardiology Dr Hodge's recommendations Diet: Consistent carb diet LOW, low salt Lines: pIVs GI Prophylaxis: Protonix 40mg qD Thrombo Prophylaxis: None. Pending cardio recommendations Code status: FULL CODE Plan of care discussed with attending Boby Almonte M.D. PGY2 Disclaimer: Minor errors in kiln door builder may be present as this note was dictated using voice recognition software. Attending Provider Attestation/Addendum Neetu Del Castillo DO, attest that I was physically present for the [place] portions of the service and evaluated the patient with the resident and I reviewed and discussed the case with the resident and agree with the resident's findings and plans of care as documented above Patient seen and eval this a.m. Patient complaining of epigastric pain, likely due to acid reflux. An EKG was done and shows atrial fibrillation. Patient was found to have new onset A-fib with RVR overnight. He remains on carvedilol that was started yesterday due to hypertension. Will obtain echocardiogram and cardiology consult. Sodium has been rapidly corrected after 1 dose of Lasix. However, questionable hyponatremia to begin with at 122. Patient was asymptomatic at the time, but noted to be very fluid overloaded. His current volume status is much improved with trace bilateral pitting edema in reduced edema in his face and abdomen currently. Patient reports some numbness and tingling in his hip, suspect likely due to bed/positioning. Nephrology following and will hold diuresis at this time due to rapid correction of his sodium. Will give D5 water due to overcorrection and possibly desmopressin. Will continue to trend sodium. Patient denies any headache, dizziness, anxiety, lightheadedness, visual, tactile or auditory hallucinations. CIWA score is currently 0. Will follow-up with nephro and cardiology recommendations otherwise. Troponins have been negative and EKG shows no acute ST or T wave changes.
[2024-11-07] MEDS: ALBUTEROL/IPRATROPIUM (Duoneb) RT SOL 3 ML NEBU INH ×2 (15:39→22:36)
[2024-11-07] MEDS: THIAMINE INJ 100 MG/ML VIAL 2 ML IVP (18:03)
[2024-11-07 19:22] LABS: Sodium 136 mMol/L (136-145)
[2024-11-07] MEDS: DiphenhydrAMINE 25 MG CAPSULE PO (21:50)
[2024-11-07] MEDS: DESMOPRESSIN ACET INJ 4 mCg/ML VIAL 10ML 2 MCG IV (21:50)
[2024-11-07 22:35] LABS: Sodium 138 mMol/L (136-145)
[2024-11-08] VITALS (13 sets, daily range): BP systolic 136–152; BP diastolic 92–109; PULSE 66–88; RESP 17–22; TEMP 36.2–37.2; O2SAT 94–100
[2024-11-08 01:36] LABS: Sodium 138 mMol/L (136-145)
[2024-11-08] MEDS: DEXTROSE 5%-WATER 1,000 ML 150 ML IV ×2 (01:48→08:22)
[2024-11-08] MEDS: ACETAMINOPHEN 325 MG TABLET 650 MG PO (04:28)
[2024-11-08] MEDS: SIMETHICONE 80 MG CHEW PO (04:48)
[2024-11-08 05:40] LABS: Basophils # (Auto) 0.1 Thou/mm3 (0.0-0.2); Basophils % (Auto) 1 % (0-2.5); Eosinophils % (Auto) 0 % (0-10); Hematocrit 43.9 % (41.0-53.0); Hemoglobin 14.5 g/dL (13.5-16.0); Immature Granulocytes % (Auto) 1 % (0-0); Immature Granulocytes Auto 0.07 Thou/mm3 (0.00-0.00); Lymphocytes # (Auto) 1.3 Thou/mm3 (1.0-4.8); Lymphocytes % (Auto) 10 % (10-50); Mean Corpuscular Volume 91 fL (80-100); Monocytes # (Auto) 1.4 Thou/mm3 (0.0-0.8); Monocytes % (Auto) 10 % (0-12); Neutrophils # (Auto) 10.9 Thou/mm3 (1.8-7.7); Neutrophils % (Auto) 79 % (37-80); Nucleated Red Blood Cell % 0 /100 WBC (0); Platelet Count 260 Thou/mm3 (140-440); RDW Standard Deviation 51.1 fL (35.1-43.9); Red Blood Count 4.84 Miln/mm3 (4.50-5.90); White Blood Count 13.8 Thou/mm3 (3.8-10.6)
[2024-11-08 05:59] LABS: Alanine Aminotransferase 67 U/L (10-49); Albumin, Serum 4.2 gm/dL (3.4-4.8); Albumin/Globulin Ratio 1.4 (1.2-2.2); Alkaline Phosphatase 154 U/L (46-116); Anion Gap 5 (7-16); Aspartate Amino Transferase 67 U/L (0-34); BUN/Creatinine Ratio 17 Ratio (12-20); Bilirubin,Total 0.6 mg/dL (0.3-1.2); Blood Urea Nitrogen 20 mg/dL (9-23); Calcium 8.7 mg/dL (8.3-10.6); Calcium (Corrected) 8.7 mg/dL (8.5-10.1); Chloride 101 mMol/L (98-107); Creatinine (Component) 1.2 mg/dL (0.6-1.3); Estimated Creatinine Clearance 75.1 mL/min (>60); Glucose 170 mg/dL (74-106); Magnesium 2.1 mg/dL (1.6-2.6); Osmolality,Calculated 282 (275-295); Phosphorous 3.3 mg/dL (2.4-5.1); Sodium 138 mMol/L (136-145); Total Protein 7.2 gm/dL (5.7-8.2); eGFR > 60 See Note
[2024-11-08] MEDS: ALBUTEROL/IPRATROPIUM (Duoneb) RT SOL 3 ML NEBU INH ×3 (07:29→14:42)
[2024-11-08] MEDS: FOLIC ACID 1 MG TABLET PO ×2 (08:18→20:33)
[2024-11-08] MEDS: carVEDILOL 3.125 MG TABLET PO ×2 (08:18→20:33)
[2024-11-08] MEDS: THIAMINE INJ 100 MG/ML VIAL 2 ML IVP (08:21)
[2024-11-08] MEDS: ENOXAPARIN SOD INJ 40 MG/0.4 ML SYRINGE SC (08:21)
[2024-11-08] MEDS: PANTOPRAZOLE INJ 40 MG VIAL IV (08:21)
--- NOTE | 2024-11-08 09:22 | PD.RESPRO ---
Documentation for date of: 11/08/24 Subjective Subjective Interval history: Mr Najera is a 64-year-old male with past medical history of hypertension, asthma, chronic tobacco use and seasonal allergies who presented to the ED. Patient worsening shortness of breath, swelling of his face and lower extremities. Patient states that has been worsening for the past 7 days and it has been increasing for the past 3 days. He denies any chest pain, nausea, vomiting, diarrhea, dysuria,dizziness, lightheadedness, visual changes, with dominal distention or abdominal pain. Patient states he was very short of breath this morning when he came to the hospital, now improved. He also endorses having orthopnea increased dyspnea on exertion. Upon presentation to the ED, patient was noted to have hyponatremia with a sodium of 122 serum osmolality of 246. Per med rec, patient had hydrochlorothiazide prescribed in the past, but patient states that he does not take it. He takes amlodipine 10 mg p.o. daily with cetirizine 10 mg p.o. tablet once daily. He also has an albuterol inhaler at home. His bilirubin is also noted to be elevated at 1.6 and AST/ ALT is 74/0. Alk phos is also elevated 141. However, abdominal ultrasound is negative for any gallstones or dilated CBD or obstruction. Patient does endorse drinking 440 ounce cans of beer daily. He endorses having anxiety if he stops drinking. His last drink was yesterday. Hospitalist service was called for admission for further workup medical management of hyponatremia. Nephrology consulted in setting of hypervolemic hyponatremia. 11/07/2024: Labs and vitals reviewed, patient sodium overcorrected from 122 to 140 in 24 hours, patient was given 3 doses of IV Lasix, this morning patient does look euvolemic, on room air, has no current complaints. Ordered strict intake and output, no urine output charted from yesterday. Patient started on D5W 100 cc/h, will plan for goal sodium 130-135 today we will consider desmopressin if sodium does not downtrend. Will continue strict monitoring of sodium every 4 hours. 11/08/2024: Patient seen and examined at bedside, patient was started on D5W 100 cc/h yesterday which was uptitrated to 150 cc/h, patient was also given desmopressin 2 mcg x 2 yesterday, patient sodium did downtrend to 136 yesterday, fluids were given cautiously as there was concern of fluid overload. Patient's sodium within goal this morning, D5W discontinued. Primary team to resume diuresis as needed, patient possibly has underlying alcoholic liver disease/MASLD versus CHF causing fluid overload status. Primary team is doing further workup. Patient sodium is stable, continue to monitor daily. Exam Vital Signs Temp Pulse Resp BP Pulse Ox O2 Del Method 97.9 F 77 20 144/92 H 98 Room Air 11/08/24 07:47 11/08/24 08:18 11/08/24 07:47 11/08/24 08:18 11/08/24 07:47 11/08/24 04:00 Narrative Exam Gen: No acute distress HEENT: NCAT, PERRLOU, Sclera anicteric, conjunctiva noninjected, oral mucosa moist without erythema Neck: Supple, full range of motion, no LAD CV: Irregular rhythm, no murmurs, rubs or gallops Resp: CTAB/L, no wheezing, rhonchi or rales GI: abdomen soft, protuberant, bowel sounds noted, no tenderness to palpation, no guarding or rebound tenderness, no organomegaly Skin: clean, dry, no rashes, lesions or ecchymosis Ext: trace pitting edema in b/l LE Neuro: A&O x3, CN II- XII intact b/l, no focal neurological deficits Objective Labs 11/09/24 05:15 11/09/24 05:15 Labs: Laboratory Results - last 24 hr 11/07/24 11/07/24 11/07/24 10:00 12:15 12:45 WBC RBC Hgb Hct MCV MCH MCHC RDW Std Deviation Plt Count Neut % (Auto) Lymph % (Auto) [place] % (Auto) Eos % (Auto) Baso % (Auto) Neut # (Auto) Lymph # (Auto) [place] # (Auto) Eos # (Auto) Baso # (Auto) Immature Gran # (Auto) Absolute Nucleated RBC Immature Gran % Nucleated RBC % Sodium 139 141 Potassium Chloride Carbon Dioxide Anion Gap BUN Creatinine Estim Creat Clear Calc eGFR BUN/Creatinine Ratio Glucose Calculated Osmolality Calcium Corrected Calcium Phosphorus Magnesium Total Bilirubin AST ALT Alkaline Phosphatase Troponin I < 0.020 Total Protein Albumin Globulin Albumin/Globulin Ratio 11/07/24 11/07/24 11/08/24 18:15 22:07 01:05 WBC RBC Hgb Hct MCV MCH MCHC RDW Std Deviation Plt Count Neut % (Auto) Lymph % (Auto) [place] % (Auto) Eos % (Auto) Baso % (Auto) Neut # (Auto) Lymph # (Auto) [place] # (Auto) Eos # (Auto) Baso # (Auto) Immature Gran # (Auto) Absolute Nucleated RBC Immature Gran % Nucleated RBC % Sodium 136 138 138 Potassium Chloride Carbon Dioxide Anion Gap BUN Creatinine Estim Creat Clear Calc eGFR BUN/Creatinine Ratio Glucose Calculated Osmolality Calcium Corrected Calcium Phosphorus Magnesium Total Bilirubin AST ALT Alkaline Phosphatase Troponin I Total Protein Albumin Globulin Albumin/Globulin Ratio 11/08/24 05:05 WBC 13.8 H RBC 4.84 Hgb 14.5 Hct 43.9 MCV 91 MCH 30.0 MCHC 33.0 RDW Std Deviation 51.1 H Plt Count 260 Neut % (Auto) 79 Lymph % (Auto) 10 [place] % (Auto) 10 Eos % (Auto) 0 Baso % (Auto) 1 Neut # (Auto) 10.9 H Lymph # (Auto) 1.3 [place] # (Auto) 1.4 H Eos # (Auto) 0.0 Baso # (Auto) 0.1 Immature Gran # (Auto) 0.07 H Absolute Nucleated RBC 0.00 Immature Gran % 1 H Nucleated RBC % 0 Sodium 138 Potassium 4.0 D Chloride 101 Carbon Dioxide 32.0 H Anion Gap 5 L BUN 20 Creatinine 1.2 Estim Creat Clear Calc 75.1 eGFR > 60 BUN/Creatinine Ratio 17 Glucose 170 H Calculated Osmolality 282 Calcium 8.7 Corrected Calcium 8.7 Phosphorus 3.3 Magnesium 2.1 Total Bilirubin 0.6 D AST 67 H ALT 67 H Alkaline Phosphatase 154 H D Troponin I Total Protein 7.2 Albumin 4.2 Globulin 3.0 Albumin/Globulin Ratio 1.4 Quality Measures Quality Measures VTE prophylaxis (lovenox ) Assessment & Plan Assessment Current Active Medications: Generic Name Dose Route Start Last Admin Trade Name Freq PRN Reason Stop Dose Admin Acetaminophen 650 mg 11/07/24 08:58 11/08/24 04:28 Acetaminophen 325 Mg Tablet PO 12/06/24 12:49 650 mg Q6H PRN Administration Fever >101.5 Albuterol/Ipratropium 3 ml 11/06/24 12:50 11/08/24 07:30 Albuterol/Ipratropium (Duoneb) Rt Brandy 3 Ml Nebu INH 12/06/24 12:59 3 ml Q6HRRT PRN Administration Shortness of breath Carvedilol 3.125 mg 11/06/24 14:45 11/08/24 08:18 Carvedilol 3.125 Mg Tablet PO 12/06/24 14:44 3.125 mg BID ROCIO Administration Enoxaparin Sodium 40 mg 11/06/24 13:00 11/08/24 08:21 Enoxaparin Sod Inj 40 Mg/0.4 Ml Syringe SC 11/20/24 12:59 40 mg QDAY ROCIO Administration Folic Acid 1 mg 11/06/24 21:00 11/08/24 08:18 Folic Acid 1 Mg Tablet PO 11/11/24 20:59 1 mg BID ROCIO Administration Furosemide 40 mg 11/06/24 21:00 11/07/24 08:50 Furosemide Inj 10 Mg/Ml 4ml Vial IVP 12/06/24 20:59 40 mg BID ROCIO Administration Lidocaine 1 patch 11/07/24 08:17 11/07/24 08:48 Lidocaine 5% 1 Patch TOP 12/07/24 08:16 1 patch DAILY PRN Administration BACK PAIN Lorazepam 0.5 mg 11/06/24 12:50 Lorazepam 2 Mg/Ml Vial IV 11/11/24 12:49 Q2HR PRN CIWA SCORE 7-13 Lorazepam 0.5 mg 11/06/24 12:50 11/07/24 03:50 Lorazepam 0.5 Mg Tablet PO 11/11/24 12:49 0.5 mg Q4HR PRN Administration CIWA Score 2-6 Lorazepam 1 mg 11/06/24 12:50 Lorazepam 2 Mg/Ml Vial IV X1 PRN Breakthrough Agitation Lorazepam 2 mg 11/06/24 12:50 Lorazepam 0.5 Mg Tablet PO 11/11/24 12:49 Q4HR PRN CIWA SCORE 12-15 Lorazepam 1 mg 11/06/24 12:55 Lorazepam 2 Mg/Ml Vial IV 11/11/24 12:54 Q2HR PRN CIWA SCORE 14-19 Ondansetron HCl 4 mg 11/06/24 12:50 Ondansetron Inj 2 Mg/Ml Inj 2 Ml IV 12/06/24 12:49 Q6H PRN NAUSEA OR VOMITING Protocol Pantoprazole Sodium 40 mg 11/07/24 12:00 11/08/24 08:21 Pantoprazole Inj 40 Mg Vial IV 12/07/24 11:59 40 mg QDAY ROCIO Administration Thiamine HCl 100 mg 11/07/24 15:45 11/08/24 08:21 Thiamine Inj 100 Mg/Ml Vial 2 Ml IVP 11/11/24 15:44 100 mg QDAY ROCIO Administration Plan Assessment and Plan: Mr Najera is a 64-year-old male with past medical history of hypertension, asthma, chronic tobacco use and seasonal allergies who presented to the ED for worsening shortness of breath, swelling of his face and lower extremities. #Hypervolemic hypotonic hyponatremia Presented with sodium of 122 and serum osmol of 246. Sodium corrected to 140 in 24 hours. Correction by 18 mmol/L Patient's underlying etiology multifactorial hypervolemia secondary to CHF and beer potomania, patient admits to drinking about 4 cans of beer daily. Denies use of HCTZ. Patient was started on D5W 100 cc/h yesterday which was uptitrated to 150 cc/h, patient was also given desmopressin 2 mcg x 2 yesterday, patient sodium did downtrend to 136. - Primary team to resume diuresis as needed - Monitor sodium daily - Agree with fluid restriction 1800 cc, strict DEISY's - Cardiology is consulted by primary team, pending echocardiogram #Chronic Alcohol use #Transaminitis #Hypertension - Management per primary team Case discussed with Attending Dr. Muñoz. Sandra Oliver PGY1 Disclaimer: This note was dictated by speech recognition. Minor errors in cartoonist special effects may be present due to voice recognition software. Attending Provider Attestation/Addendum Pt is seen and examined. Labs and investigations are reviewed. Agree witth assessment and plan by resident. agree with findings. Chai Muñoz MD
--- NOTE | 2024-11-08 09:46 | PD.IMCONS ---
HPI Data of Consult Requesting Physician: Neetu Keller DO Primary Care Provider: BRITTANI Wright Consult Narrative History of present illness: This is a 64-year-old male with past medical history of hypertension, asthma, chronic tobacco use and seasonal allergies pt seen in the ER with sob and leg edema nochest pain troponin negative EKG afib rate controlled cc:: cc: Neetu Keller DO Meds Home Medications and Allergies Home Medications ?Medication ?Instructions ?Recorded ?Confirmed ?Type amlodipine 10 mg tablet 10 mg PO 1XD 11/06/24 11/06/24 History cetirizine 10 mg tablet 10 mg PO 1XD 11/06/24 11/06/24 History Allergies Allergy/AdvReac Type Severity Reaction Status Date / Time rivastigmine Allergy Severe BLISTERS/RA Verified 11/06/24 14:16 SH/ITCHING Exam Vital Signs Temp Pulse Resp BP Pulse Ox O2 Del Method 97.9 F 77 20 144/92 H 98 Room Air 11/08/24 07:47 11/08/24 08:18 11/08/24 07:47 11/08/24 08:18 11/08/24 07:47 11/08/24 04:00 Routine HEENT Exam Head: Present normocephalic and atraumatic Eye: Present EOMI and PERRL ENT: Present mucous membranes moist Routine Neck Exam Neck: Present supple and trachea midline Routine Respiratory Exam Respiratory: Present chest non-tender, lungs clear, normal breath sounds and no resp distress Routine Cardiovascular Exam Cardiovascular: Present RRR Routine Abdominal Exam Abdominal: Present soft and normoactive bowel sounds Routine Extremities Exam Extremities: Present full ROM Routine Skin Exam Skin: Present intact, dry and warm Routine Neurological Exam Neurological: Present alert, oriented X3 and CN II-XII intact Routine Psychiatric Exam Psychiatric: Present normal affect and normal thought process Results Labs 11/08/24 05:05 11/08/24 05:05 Labs: Short CBC 11/08/24 Range/Units 05:05 WBC 13.8 H (3.8-10.6) Thou/mm3 Hgb 14.5 (13.5-16.0) g/dL Hct 43.9 (41.0-53.0) % Plt Count 260 (140-440) Thou/mm3 BMP 11/07/24 11/07/24 11/07/24 10:00 12:45 18:15 Sodium 139 141 136 Potassium Chloride Carbon Dioxide BUN Creatinine Glucose Calcium 11/07/24 11/08/24 11/08/24 22:07 01:05 05:05 Sodium 138 138 138 Potassium 4.0 D Chloride 101 Carbon Dioxide 32.0 H BUN 20 Creatinine 1.2 Glucose 170 H Calcium 8.7 Cardiac Enzymes 11/07/24 Range/Units 12:15 Troponin I < 0.020 (0.0-0.045) ng/mL Liver Function 11/08/24 Range/Units 05:05 Total Bilirubin 0.6 D (0.3-1.2) mg/dL AST 67 H (0-34) U/L ALT 67 H (10-49) U/L Alkaline Phosphatase 154 H D (46-116) U/L Albumin 4.2 (3.4-4.8) gm/dL Assessment and Plan Assessment and plan (1) Anasarca: Status: Acute (2) Elevated LFTs: Status: Acute (3) Hyponatremia with decreased serum osmolality: Status: Acute (4) Afib: Status: Acute (5) Alcoholic liver disease: Status: Acute Additional Assessment & Plan Additional Plan: afib is rate controlled agree with current treatment obtain echo may need computer terminal operator anticoagulation
[2024-11-08 10:43] LABS: Sodium 136 mMol/L (136-145)
--- NOTE | 2024-11-08 11:33 | XR_ITS ---
Examination: Ultrasound abdominal aorta Technique: Grayscale sonographic images abdominal aorta Exam date and time: November 08, 2024 1258 hrs. Indications: Abdominal pain today Findings: Transverse dimension proximal aorta 2.1 cm mid aorta 2.6 cm distal aorta 0.5 cm Impression: Negative for abdominal aortic aneurysm
--- NOTE | 2024-11-08 12:23 | ESPR_ITS ---
Documentation for date of: 11/08/24 Subjective Subjective Interval history: 11/08/2024: Overnight the patient had bradycardia in the 40s but asymptomatic; moreover, had some abdominal discomfort which resolved with simethicone. Patient seen and examined this morning reporting improvement in presenting symptoms; however, provided more information regarding his diagnosis and cause of hyponatremia. Patient likely has some degree of vascular congestion secondary to liver disease (alcohol use disorder, NAFLD) versus possibly congestive heart failure. Patient has a echocardiogram which is ordered but pending. Atrial fibrillation noted on EKG is rate controlled. CIWA have been between 0 and 1. Patient will complete outpatient MRI of abdomen for pancreatic head measuring at 3.[address] imaging. Exam Vital Signs Temp Pulse Resp BP Pulse Ox O2 Del Method 98.2 F 70 17 146/109 H 94 L Room Air 11/08/24 11:50 11/08/24 11:50 11/08/24 11:50 11/08/24 11:50 11/08/24 11:50 11/08/24 11:50 Narrative Exam Constitutional Alert, oriented x3. Obese HEENT Vision grossly intact. Patent nares. Trachea midline. Respiratory Chest normal on inspection and clear to auscultation bilaterally. Cardiovascular S1 and S2 audible, irregularly irregular. No murmurs or carotid bruit. No gross JVD. Abdominal Soft, protuberant, non tender to palpation in all quadrants. BS + Genitourinary No bladder tenderness, no flank pain. Normal to palpation. Musculoskeletal Extremities tone within normal limits. No LE edema. Neurological CN II - XII grossly intact. Extremity motor and sensation grossly intact. Skin Warm, dry and intact. No apparent lesions. Psychiatric Patient has a good affect, is cooperative. Objective Labs 11/09/24 05:15 11/09/24 05:15 Labs: Laboratory Results - last 24 hr 11/07/24 11/07/24 11/07/24 12:15 12:45 18:15 WBC RBC Hgb Hct MCV MCH MCHC RDW Std Deviation Plt Count Neut % (Auto) Lymph % (Auto) [place] % (Auto) Eos % (Auto) Baso % (Auto) Neut # (Auto) Lymph # (Auto) [place] # (Auto) Eos # (Auto) Baso # (Auto) Immature Gran # (Auto) Absolute Nucleated RBC Immature Gran % Nucleated RBC % Sodium 141 136 Potassium Chloride Carbon Dioxide Anion Gap BUN Creatinine Estim Creat Clear Calc eGFR BUN/Creatinine Ratio Glucose Calculated Osmolality Calcium Corrected Calcium Phosphorus Magnesium Total Bilirubin AST ALT Alkaline Phosphatase Troponin I < 0.020 Total Protein Albumin Globulin Albumin/Globulin Ratio 11/07/24 11/08/24 11/08/24 22:07 01:05 05:05 WBC 13.8 H RBC 4.84 Hgb 14.5 Hct 43.9 MCV 91 MCH 30.0 MCHC 33.0 RDW Std Deviation 51.1 H Plt Count 260 Neut % (Auto) 79 Lymph % (Auto) 10 [place] % (Auto) 10 Eos % (Auto) 0 Baso % (Auto) 1 Neut # (Auto) 10.9 H Lymph # (Auto) 1.3 [place] # (Auto) 1.4 H Eos # (Auto) 0.0 Baso # (Auto) 0.1 Immature Gran # (Auto) 0.07 H Absolute Nucleated RBC 0.00 Immature Gran % 1 H Nucleated RBC % 0 Sodium 138 138 138 Potassium 4.0 D Chloride 101 Carbon Dioxide 32.0 H Anion Gap 5 L BUN 20 Creatinine 1.2 Estim Creat Clear Calc 75.1 eGFR > 60 BUN/Creatinine Ratio 17 Glucose 170 H Calculated Osmolality 282 Calcium 8.7 Corrected Calcium 8.7 Phosphorus 3.3 Magnesium 2.1 Total Bilirubin 0.6 D AST 67 H ALT 67 H Alkaline Phosphatase 154 H D Troponin I Total Protein 7.2 Albumin 4.2 Globulin 3.0 Albumin/Globulin Ratio 1.4 11/08/24 09:59 WBC RBC Hgb Hct MCV MCH MCHC RDW Std Deviation Plt Count Neut % (Auto) Lymph % (Auto) [place] % (Auto) Eos % (Auto) Baso % (Auto) Neut # (Auto) Lymph # (Auto) [place] # (Auto) Eos # (Auto) Baso # (Auto) Immature Gran # (Auto) Absolute Nucleated RBC Immature Gran % Nucleated RBC % Sodium 136 Potassium Chloride Carbon Dioxide Anion Gap BUN Creatinine Estim Creat Clear Calc eGFR BUN/Creatinine Ratio Glucose Calculated Osmolality Calcium Corrected Calcium Phosphorus Magnesium Total Bilirubin AST ALT Alkaline Phosphatase Troponin I Total Protein Albumin Globulin Albumin/Globulin Ratio Quality Measures Quality Measures VTE prophylaxis Assessment & Plan Assessment Current Active Medications: Generic Name Dose Route Start Last Admin Trade Name Freq PRN Reason Stop Dose Admin Acetaminophen 650 mg 11/07/24 08:58 11/08/24 04:28 Acetaminophen 325 Mg Tablet PO 12/06/24 12:49 650 mg Q6H PRN Administration Fever >101.5 Albuterol/Ipratropium 3 ml 11/06/24 12:50 11/08/24 07:30 Albuterol/Ipratropium (Duoneb) Rt Brandy 3 Ml Nebu INH 12/06/24 12:59 3 ml Q6HRRT PRN Administration Shortness of breath Carvedilol 3.125 mg 11/06/24 14:45 11/08/24 08:18 Carvedilol 3.125 Mg Tablet PO 12/06/24 14:44 3.125 mg BID ROCIO Administration Enoxaparin Sodium 40 mg 11/06/24 13:00 11/08/24 08:21 Enoxaparin Sod Inj 40 Mg/0.4 Ml Syringe SC 11/20/24 12:59 40 mg QDAY ROCIO Administration Folic Acid 1 mg 11/06/24 21:00 11/08/24 08:18 Folic Acid 1 Mg Tablet PO 11/11/24 20:59 1 mg BID ROCIO Administration Furosemide 40 mg 11/06/24 21:00 11/07/24 08:50 Furosemide Inj 10 Mg/Ml 4ml Vial IVP 12/06/24 20:59 40 mg BID ROCIO Administration Lidocaine 1 patch 11/07/24 08:17 11/07/24 08:48 Lidocaine 5% 1 Patch TOP 12/07/24 08:16 1 patch DAILY PRN Administration BACK PAIN Lorazepam 0.5 mg 11/06/24 12:50 Lorazepam 2 Mg/Ml Vial IV 11/11/24 12:49 Q2HR PRN CIWA SCORE 7-13 Lorazepam 0.5 mg 11/06/24 12:50 11/07/24 03:50 Lorazepam 0.5 Mg Tablet PO 11/11/24 12:49 0.5 mg Q4HR PRN Administration CIWA Score 2-6 Lorazepam 1 mg 11/06/24 12:50 Lorazepam 2 Mg/Ml Vial IV X1 PRN Breakthrough Agitation Lorazepam 2 mg 11/06/24 12:50 Lorazepam 0.5 Mg Tablet PO 11/11/24 12:49 Q4HR PRN CIWA SCORE 12-15 Lorazepam 1 mg 11/06/24 12:55 Lorazepam 2 Mg/Ml Vial IV 11/11/24 12:54 Q2HR PRN CIWA SCORE 14-19 Ondansetron HCl 4 mg 11/06/24 12:50 Ondansetron Inj 2 Mg/Ml Inj 2 Ml IV 12/06/24 12:49 Q6H PRN NAUSEA OR VOMITING Protocol Pantoprazole Sodium 40 mg 11/07/24 12:00 11/08/24 08:21 Pantoprazole Inj 40 Mg Vial IV 12/07/24 11:59 40 mg QDAY ROCIO Administration Thiamine HCl 100 mg 11/07/24 15:45 11/08/24 08:21 Thiamine Inj 100 Mg/Ml Vial 2 Ml IVP 11/11/24 15:44 100 mg QDAY ROCIO Administration Plan 64-year-old male with past medical history of hypertension, asthma, chronic tobacco use and seasonal allergies who presented to the ED. Patient worsening shortness of breath, swelling of his face and lower extremities, and hyponatremia on lab work. Known history of alcohol use disorder. #Hypervolemic hypotonic hyponatremia - resolved #Anasarca - improving Differentials include beer Poto jethro versus liver disease versus CHF Urine studies indicate prerenal azotemia with Kayla 0.5 (less than 1) Presented with sodium of 122 and serum osmol of 246 Na 122 -> 134 -> 138 -> 141 Denies diuretic use Plan: Fluid restrict 1800mL qshift Nephrology consulted, appreciate recommendations Discontinue desmopressin Discontinue IV fluids Restarted IV Lasix 40 mg daily as the patient appears volume overloaded Pending echocardiogram to rule out wall motion abnormalities #Alcohol use disorder Patient drinks 4 large beers daily and admits to having anxiety when he does not drink. Patient does endorse drinking 440 ounce cans of beer daily. Denies withdrawal seizures in the past No banana bag or supplements given on admission Plan: On PRN CIWA protocol Seizure precautions in place Thiamine 100mg IV qD x5d Folic acid 1mg BD environmental services attendant referral placed Pt counseled about alcohol use #Atrial Fibrillation NVR Assessment: Chronic, EKG shows AFib; rate controlled (HR 77) EKG: A. Fib with RVR , HR 70s Type: New onset, paroxysmal Intermittent episodes of palpitations with spontaneous return to sinus CHADsVASc score = 3 ; 3.2% stroke risk annually HASBLED score = 1 ; Low risk of major bleeding Plan: Patient would like to wait echo results prior to starting anticoagulation Rate control: Carvedilol 12.5 mg PO BIDWM Continue to monitor Telemetry Cardiology Dr Hodge is consulted, pending recommendations #Alcohol induced liver injury #Metabolic associated steatotic liver disease #Elevated liver enzymes Patient has history of excessive alcohol use disorder, at least 4 beers per day Possible congestive hepatopathy Bilirubin is also noted to be elevated at 1.6 and AST/ ALT is 74/0, Alk phos is also elevated 141. No CBD obstruction noted on RUQ US Abdominal ultrasound is negative for any gallstones or dilated CBD or obstruction. Plan: Will monitor LFTs closely Complete alcohol cessation, counseled Encouraged weight loss, outpatient PCP follow-up #Primary Hypertension #Possible AAA? Per patient and family bedside, patient's been having minimal abdominal sensation including described mass which is present at times On examination, there is no signs of a pulsatile mass Plan: Ordered ultrasound abdomen for AAA assessment. Continue coreg 3.125mg PO BID Hold home amlodipine as it can worsen b/l LE edema Health Maintenance: Disposition: Med tele Diet: Consistent carb diet LOW, low salt Lines: pIVs GI Prophylaxis: Protonix 40mg qD DVT prophylaxis: Lovenox Code status: FULL CODE Patient seen and assessed with attending Dr. Krishna Chaves, PGY-1 Attending Provider Attestation/Addendum Neetu Del Castillo DO, attest that I was physically present for the corbett portions of the service and evaluated the patient with the resident and I reviewed and discussed the case with the resident and agree with the resident's findings and plans of care as documented above Patient seen and evaluated this a.m. Patient is eager to have his echocardiogram done and would like to see the cream gatherer. He is very concerned that there is water around his heart. Daughter was at bedside. Updated and explained to patient regarding reason for his fluid overload and need for heart rate control given his new onset A-fib. Daughter at bedside states that A-fib runs in the family, as well as cirrhosis. Patient is concerned about his liver as well. Counseled patient regarding cessation of alcohol use. Sodium has been downtrending after receiving desmopressin. Discontinued at this time by nephrology. Will continue with diuresis and fluid restriction at this time as he is noted to have more facial edema today. Patient complaining of a pulling sensation when he takes a deep breath in his abdomen. Abdominal exam appears to be benign, no hernias noted. Ultrasound of abdomen was done to rule out any AAA as patient is a chronic smoker. AAA was ruled out. Patient is aware that he may need chronic anticoagulation for A-fib as recommended by cardiology, but would like to defer this until after having echocardiogram done. He is concerned that he works on the [employer] and often lifts heavy material that may cause him to fall
[2024-11-08 14:28] LABS: Sodium 135 mMol/L (136-145)
--- NOTE | 2024-11-08 16:05 | EKG_ITS ---
[facility] Test Date: 2024-11-08 Pat Name: PHILIP WEBB [facility] Gender[facility] Male [employer] Paraprofessional: OSCAR : [id number] Requested By: Espinoza Chaves Order Number: [id number] Reading MD: Espinoza Chaves Measurements Intervals [place] Rate: 75 P: TN: QRS: 66 QRSD: 92 T: 62 QT: 433 QTc: 485 Interpretive Statements ATRIAL FIBRILLATION NONSPECIFIC T-WAVE ABNORMALITY PROLONGED QT INTERVAL Compared to ECG 11/07/2024 12:09:22 Prolonged QT interval now present T-wave abnormality still present /store/S0/[id number].pdf
[2024-11-08 19:37] LABS: Sodium 136 mMol/L (136-145)
[2024-11-08] MEDS: POLYETHYLENE GLYCOL 17 GM PACKET PO (20:33)
[2024-11-08] MEDS: DiphenhydrAMINE 25 MG CAPSULE PO (20:56)
[2024-11-08 21:38] LABS: Sodium 136 mMol/L (136-145)
[2024-11-09] VITALS (14 sets, daily range): BP systolic 119–154; BP diastolic 84–109; PULSE 70–105; RESP 16–30; TEMP 36.1–36.7; O2SAT 95–100; BMI 31.8
[2024-11-09 06:07] LABS: Basophils # (Auto) 0.1 Thou/mm3 (0.0-0.2); Basophils % (Auto) 2 % (0-2.5); Eosinophils # (Auto) 0.2 Thou/mm3 (0.0-0.5); Eosinophils % (Auto) 2 % (0-10); Hematocrit 43.6 % (41.0-53.0); Hemoglobin 14.4 g/dL (13.5-16.0); Immature Granulocytes % (Auto) 0 % (0-0); Immature Granulocytes Auto 0.04 Thou/mm3 (0.00-0.00); Lymphocytes # (Auto) 1.6 Thou/mm3 (1.0-4.8); Lymphocytes % (Auto) 16 % (10-50); Mean Corpuscular Hemoglobin 29.5 pg (25.0-35.0); Mean Corpuscular Volume 89 fL (80-100); Monocytes # (Auto) 1.1 Thou/mm3 (0.0-0.8); Monocytes % (Auto) 12 % (0-12); Neutrophils # (Auto) 6.4 Thou/mm3 (1.8-7.7); Neutrophils % (Auto) 68 % (37-80); Nucleated Red Blood Cell % 0 /100 WBC (0); Platelet Count 237 Thou/mm3 (140-440); RDW Standard Deviation 50.3 fL (35.1-43.9); Red Blood Count 4.88 Miln/mm3 (4.50-5.90); White Blood Count 9.5 Thou/mm3 (3.8-10.6)
[2024-11-09 06:41] LABS: Alanine Aminotransferase 90 U/L (10-49); Albumin, Serum 3.9 gm/dL (3.4-4.8); Albumin/Globulin Ratio 1.3 (1.2-2.2); Alkaline Phosphatase 131 U/L (46-116); Anion Gap 8 (7-16); Aspartate Amino Transferase 116 U/L (0-34); BUN/Creatinine Ratio 16 Ratio (12-20); Bilirubin,Total 0.9 mg/dL (0.3-1.2); Blood Urea Nitrogen 14 mg/dL (9-23); Calcium 8.5 mg/dL (8.3-10.6); Calcium (Corrected) 8.6 mg/dL (8.5-10.1); Carbon Dioxide 30.4 mMol/L (20.0-31.0); Chloride 102 mMol/L (98-107); Creatinine (Component) 0.9 mg/dL (0.6-1.3); Estimated Creatinine Clearance 101.4 mL/min (>60); Globulin 2.9 gm/dL (2.3-3.5); Glucose 105 mg/dL (74-106); Osmolality,Calculated 279 (275-295); Phosphorous 3.8 mg/dL (2.4-5.1); Potassium 3.9 mMol/L (3.4-5.1); Sodium 140 mMol/L (136-145); Total Protein 6.8 gm/dL (5.7-8.2); eGFR > 60 See Note
[2024-11-09] MEDS: PANTOPRAZOLE INJ 40 MG VIAL IV (08:03)
[2024-11-09] MEDS: carVEDILOL 3.125 MG TABLET PO ×2 (08:04→20:42)
[2024-11-09] MEDS: THIAMINE INJ 100 MG/ML VIAL 2 ML IVP (08:04)
[2024-11-09] MEDS: ENOXAPARIN SOD INJ 40 MG/0.4 ML SYRINGE SC (08:04)
[2024-11-09] MEDS: FOLIC ACID 1 MG TABLET PO ×2 (08:05→20:42)
[2024-11-09] MEDS: ALBUTEROL/IPRATROPIUM (Duoneb) RT SOL 3 ML NEBU INH (08:29)
[2024-11-09] MEDS: Lisinopril 2.5 MG TABLET 5 MG PO (10:15)
--- NOTE | 2024-11-09 11:13 | ESPR_ITS ---
Documentation for date of: 11/09/24 Subjective Subjective Interval history: 11/09/2024: No acute overnight events to report. Patient seen and examined in hospital bed reports improvement in presenting symptoms; denies having any concerning cardiac symptoms such as chest pain, shortness of breath, palpitations or new dizziness. Nephrology, Dr. Muñoz, recommends that the patient to follow-up in 2 weeks at his office for the hyponatremia. Patient is still pending echocardiogram to elicit for potential congestive heart failure. Liver function enzymes continue to uptrend likely in the setting of NAFLD along with alcohol use disorder. Patient CIWA scores have persistently been 0. Will continue to monitor the patient and expect discharge within the next 24 hours. Exam Vital Signs Temp Pulse Resp BP Pulse Ox O2 Del Method 97.5 F 80 16 142/84 H 100 Room Air 11/09/24 08:00 11/09/24 10:15 11/09/24 08:30 11/09/24 10:15 11/09/24 08:30 11/09/24 08:00 Narrative Exam Constitutional Alert, oriented x3. Obese HEENT Vision grossly intact. Patent nares. Trachea midline. Respiratory Chest normal on inspection and clear to auscultation bilaterally. Cardiovascular S1 and S2 audible, irregularly irregular. No murmurs or carotid bruit. No gross JVD. Abdominal Soft, protuberant, non tender to palpation in all quadrants. BS + Genitourinary No bladder tenderness, no flank pain. Normal to palpation. Musculoskeletal Extremities tone within normal limits. No LE edema. Neurological CN II - XII grossly intact. Extremity motor and sensation grossly intact. Skin Warm, dry and intact. No apparent lesions. Psychiatric Patient has a good affect, is cooperative. Objective Labs 11/10/24 04:50 11/10/24 04:50 Labs: Laboratory Results - last 24 hr 11/08/24 11/08/24 11/08/24 14:07 18:51 21:07 WBC RBC Hgb Hct MCV MCH MCHC RDW Std Deviation Plt Count Neut % (Auto) Lymph % (Auto) [place] % (Auto) Eos % (Auto) Baso % (Auto) Neut # (Auto) Lymph # (Auto) [place] # (Auto) Eos # (Auto) Baso # (Auto) Immature Gran # (Auto) Absolute Nucleated RBC Immature Gran % Nucleated RBC % Sodium 135 L 136 136 Potassium Chloride Carbon Dioxide Anion Gap BUN Creatinine Estim Creat Clear Calc eGFR BUN/Creatinine Ratio Glucose Calculated Osmolality Calcium Corrected Calcium Phosphorus Magnesium Total Bilirubin AST ALT Alkaline Phosphatase Total Protein Albumin Globulin Albumin/Globulin Ratio 11/09/24 05:15 WBC 9.5 RBC 4.88 Hgb 14.4 Hct 43.6 MCV 89 MCH 29.5 MCHC 33.0 RDW Std Deviation 50.3 H Plt Count 237 Neut % (Auto) 68 Lymph % (Auto) 16 [place] % (Auto) 12 Eos % (Auto) 2 Baso % (Auto) 2 Neut # (Auto) 6.4 Lymph # (Auto) 1.6 [place] # (Auto) 1.1 H Eos # (Auto) 0.2 Baso # (Auto) 0.1 Immature Gran # (Auto) 0.04 H Absolute Nucleated RBC 0.00 Immature Gran % 0 Nucleated RBC % 0 Sodium 140 Potassium 3.9 Chloride 102 Carbon Dioxide 30.4 Anion Gap 8 BUN 14 Creatinine 0.9 Estim Creat Clear Calc 101.4 eGFR > 60 BUN/Creatinine Ratio 16 Glucose 105 D Calculated Osmolality 279 Calcium 8.5 Corrected Calcium 8.6 Phosphorus 3.8 Magnesium 2.0 Total Bilirubin 0.9 AST 116 H ALT 90 H Alkaline Phosphatase 131 H D Total Protein 6.8 Albumin 3.9 Globulin 2.9 Albumin/Globulin Ratio 1.3 Quality Measures Quality Measures VTE prophylaxis Assessment & Plan Assessment Current Active Medications: Generic Name Dose Route Start Last Admin Trade Name Freq PRN Reason Stop Dose Admin Acetaminophen 650 mg 11/07/24 08:58 11/08/24 04:28 Acetaminophen 325 Mg Tablet PO 12/06/24 12:49 650 mg Q6H PRN Administration Fever >101.5 Albuterol/Ipratropium 3 ml 11/06/24 12:50 11/09/24 08:29 Albuterol/Ipratropium (Duoneb) Rt Brandy 3 Ml Nebu INH 12/06/24 12:59 3 ml Q6HRRT PRN Administration Shortness of breath Carvedilol 3.125 mg 11/06/24 14:45 11/09/24 08:04 Carvedilol 3.125 Mg Tablet PO 12/06/24 14:44 3.125 mg BID ROCIO Administration Enoxaparin Sodium 40 mg 11/06/24 13:00 11/09/24 08:04 Enoxaparin Sod Inj 40 Mg/0.4 Ml Syringe SC 11/20/24 12:59 40 mg QDAY ROCIO Administration Folic Acid 1 mg 11/06/24 21:00 11/09/24 08:05 Folic Acid 1 Mg Tablet PO 11/11/24 20:59 1 mg BID ROCIO Administration Furosemide 40 mg 11/08/24 14:00 Furosemide Inj 10 Mg/Ml 4ml Vial IVP 12/08/24 13:59 QDAY ROCIO Lidocaine 1 patch 11/07/24 08:17 11/07/24 08:48 Lidocaine 5% 1 Patch TOP 12/07/24 08:16 1 patch DAILY PRN Administration BACK PAIN Lisinopril 5 mg 11/09/24 10:00 11/09/24 10:15 Lisinopril 2.5 Mg Tablet PO 12/09/24 09:59 5 mg QDAY ROCIO Administration Lorazepam 0.5 mg 11/06/24 12:50 Lorazepam 2 Mg/Ml Vial IV 11/11/24 12:49 Q2HR PRN CIWA SCORE 7-13 Lorazepam 0.5 mg 11/06/24 12:50 11/07/24 03:50 Lorazepam 0.5 Mg Tablet PO 11/11/24 12:49 0.5 mg Q4HR PRN Administration CIWA Score 2-6 Lorazepam 1 mg 11/06/24 12:50 Lorazepam 2 Mg/Ml Vial IV X1 PRN Breakthrough Agitation Lorazepam 2 mg 11/06/24 12:50 Lorazepam 0.5 Mg Tablet PO 11/11/24 12:49 Q4HR PRN CIWA SCORE 12-15 Lorazepam 1 mg 11/06/24 12:55 Lorazepam 2 Mg/Ml Vial IV 11/11/24 12:54 Q2HR PRN CIWA SCORE 14-19 Ondansetron HCl 4 mg 11/06/24 12:50 Ondansetron Inj 2 Mg/Ml Inj 2 Ml IV 12/06/24 12:49 Q6H PRN NAUSEA OR VOMITING Protocol Pantoprazole Sodium 40 mg 11/07/24 12:00 11/09/24 08:03 Pantoprazole Inj 40 Mg Vial IV 12/07/24 11:59 40 mg QDAY ROCIO Administration Thiamine HCl 100 mg 11/07/24 15:45 11/09/24 08:04 Thiamine Inj 100 Mg/Ml Vial 2 Ml IVP 11/11/24 15:44 100 mg QDAY ROCIO Administration Plan 64-year-old male with past medical history of hypertension, asthma, chronic tobacco use and seasonal allergies who presented to the ED. Patient worsening shortness of breath, swelling of his face and lower extremities, and hyponatremia on lab work. Known history of alcohol use disorder. #Hypervolemic hypotonic hyponatremia - resolved #Anasarca - improving Differentials include beer Poto jethro versus liver disease versus CHF Urine studies indicate prerenal azotemia with Kayla 0.5 (less than 1) Presented with sodium of 122 and serum osmol of 246 Na 122 -> 134 -> 138 -> 141 Denies diuretic use Plan: Fluid restrict 1800mL qshift Nephrology consulted, appreciate recommendations Nephrology to follow-up in 2 weeks at outpatient clinic Restarted IV Lasix 40 mg daily as the patient appears volume overloaded Pending echocardiogram to rule out wall motion abnormalities #Alcohol use disorder Patient drinks 4 large beers daily and admits to having anxiety when he does not drink. Patient does endorse drinking 440 ounce cans of beer daily. Denies withdrawal seizures in the past No banana bag or supplements given on admission Plan: On PRN CIWA protocol Seizure precautions in place Thiamine 100mg IV qD x5d Folic acid 1mg BD rehabilitation services director referral placed Pt counseled about alcohol use #Atrial Fibrillation NVR Assessment: Chronic, EKG shows AFib; rate controlled (HR 77) EKG: A. Fib with RVR , HR 70s Type: New onset, paroxysmal Intermittent episodes of palpitations with spontaneous return to sinus CHADsVASc score = 3 ; 3.2% stroke risk annually HASBLED score = 1 ; Low risk of major bleeding Plan: Patient would like to wait echo results prior to starting anticoagulation Rate control: Carvedilol 12.5 mg PO BIDWM Continue to monitor Telemetry Cardiology Dr Hodge is consulted, pending recommendations #Alcohol induced liver injury #Metabolic associated steatotic liver disease #Elevated liver enzymes Patient has history of excessive alcohol use disorder, at least 4 beers per day Possible congestive hepatopathy Bilirubin is also noted to be elevated at 1.6 and AST/ ALT is 74/0, Alk phos is also elevated 141. No CBD obstruction noted on RUQ US Abdominal ultrasound is negative for any gallstones or dilated CBD or obstruction. Plan: Will monitor LFTs closely Complete alcohol cessation, counseled Encouraged weight loss, outpatient PCP follow-up #Primary Hypertension #Possible AAA, ruled out Per patient and family bedside, patient's been having minimal abdominal sensation including described mass which is present at times On examination, there is no signs of a pulsatile mass Ultrasound abdomen does not show any signs of AAA Plan: Continue coreg 3.125mg PO BID Hold home amlodipine as it can worsen b/l LE edema Health Maintenance: Disposition: Med tele Diet: Consistent carb diet LOW, low salt Lines: pIVs GI Prophylaxis: Not needed DVT prophylaxis: Lovenox Code status: FULL CODE Patient seen and assessed with attending Dr. Krishna Chaves, PGY-1 Attending Provider Attestation/Addendum Neetu Del Castillo, , attest that I was physically present for the [place]bett portions of the service and evaluated the patient with the resident and I reviewed and discussed the case with the resident and agree with the resident's findings and plans of care as documented above Patient seen and evaluated this AM. He states he is feeling well. Pending echocardiogram. Liver enzymes slightly elevated, likely due to congestion. Will continue with diuresis at this time. Anticipate DC within 24hrs.
--- NOTE | 2024-11-09 11:28 | PD.RESPRO ---
Documentation for date of: 11/09/24 Subjective Subjective Interval history: Mr Najera is a 64-year-old male with past medical history of hypertension, asthma, chronic tobacco use and seasonal allergies who presented to the ED. Patient worsening shortness of breath, swelling of his face and lower extremities. Patient states that has been worsening for the past 7 days and it has been increasing for the past 3 days. He denies any chest pain, nausea, vomiting, diarrhea, dysuria,dizziness, lightheadedness, visual changes, with dominal distention or abdominal pain. Patient states he was very short of breath this morning when he came to the hospital, now improved. He also endorses having orthopnea increased dyspnea on exertion. Upon presentation to the ED, patient was noted to have hyponatremia with a sodium of 122 serum osmolality of 246. Per med rec, patient had hydrochlorothiazide prescribed in the past, but patient states that he does not take it. He takes amlodipine 10 mg p.o. daily with cetirizine 10 mg p.o. tablet once daily. He also has an albuterol inhaler at home. His bilirubin is also noted to be elevated at 1.6 and AST/ ALT is 74/0. Alk phos is also elevated 141. However, abdominal ultrasound is negative for any gallstones or dilated CBD or obstruction. Patient does endorse drinking 440 ounce cans of beer daily. He endorses having anxiety if he stops drinking. His last drink was yesterday. Hospitalist service was called for admission for further workup medical management of hyponatremia. Nephrology consulted in setting of hypervolemic hyponatremia. 11/07/2024: Labs and vitals reviewed, patient sodium overcorrected from 122 to 140 in 24 hours, patient was given 3 doses of IV Lasix, this morning patient does look euvolemic, on room air, has no current complaints. Ordered strict intake and output, no urine output charted from yesterday. Patient started on D5W 100 cc/h, will plan for goal sodium 130-135 today we will consider desmopressin if sodium does not downtrend. Will continue strict monitoring of sodium every 4 hours. 11/08/2024: Patient seen and examined at bedside, patient was started on D5W 100 cc/h yesterday which was uptitrated to 150 cc/h, patient was also given desmopressin 2 mcg x 2 yesterday, patient sodium did downtrend to 136 yesterday, fluids were given cautiously as there was concern of fluid overload. Patient's sodium within goal this morning, D5W discontinued. Primary team to resume diuresis as needed, patient possibly has underlying alcoholic liver disease/MASLD versus CHF causing fluid overload status. Primary team is doing further workup. Patient sodium is stable, continue to monitor daily. 11/09/2024: Patient seen and examined at bedside, sodium is stable at 140, diuresis resumed by primary team, patient is undergoing workup for fluid overload, pending echocardiogram. Patient will need MRI abdomen outpatient. Otherwise patient is stable, has no current complaint saturating well on room air. Exam Vital Signs Temp Pulse Resp BP Pulse Ox O2 Del Method 97.5 F 80 16 142/84 H 100 Room Air 11/09/24 08:00 11/09/24 10:15 11/09/24 08:30 11/09/24 10:11/09/24 08:30 11/09/24 08:00 Narrative Exam Gen: No acute distress HEENT: NCAT, PERRLOU, Sclera anicteric, conjunctiva noninjected, oral mucosa moist without erythema Neck: Supple, full range of motion, no LAD CV: Irregular rhythm, no murmurs, rubs or gallops Resp: CTAB/L, no wheezing, rhonchi or rales GI: abdomen soft, protuberant, bowel sounds noted, no tenderness to palpation, no guarding or rebound tenderness, no organomegaly Skin: clean, dry, no rashes, lesions or ecchymosis Ext: trace pitting edema in b/l LE Neuro: A&O x3, CN II- XII intact b/l, no focal neurological deficits Objective Labs 11/09/24 05:15 11/09/24 05:15 Labs: Laboratory Results - last 24 hr 11/08/24 11/08/24 11/08/24 14:07 18:51 21:07 WBC RBC Hgb Hct MCV MCH MCHC RDW Std Deviation Plt Count Neut % (Auto) Lymph % (Auto) [place] % (Auto) Eos % (Auto) Baso % (Auto) Neut # (Auto) Lymph # (Auto) [place] # (Auto) Eos # (Auto) Baso # (Auto) Immature Gran # (Auto) Absolute Nucleated RBC Immature Gran % Nucleated RBC % Sodium 135 L 136 136 Potassium Chloride Carbon Dioxide Anion Gap BUN Creatinine Estim Creat Clear Calc eGFR BUN/Creatinine Ratio Glucose Calculated Osmolality Calcium Corrected Calcium Phosphorus Magnesium Total Bilirubin AST ALT Alkaline Phosphatase Total Protein Albumin Globulin Albumin/Globulin Ratio 11/09/24 05:15 WBC 9.5 RBC 4.88 Hgb 14.4 Hct 43.6 MCV 89 MCH 29.5 MCHC 33.0 RDW Std Deviation 50.3 H Plt Count 237 Neut % (Auto) 68 Lymph % (Auto) 16 [place] % (Auto) 12 Eos % (Auto) 2 Baso % (Auto) 2 Neut # (Auto) 6.4 Lymph # (Auto) 1.6 [place] # (Auto) 1.1 H Eos # (Auto) 0.2 Baso # (Auto) 0.1 Immature Gran # (Auto) 0.04 H Absolute Nucleated RBC 0.00 Immature Gran % 0 Nucleated RBC % 0 Sodium 140 Potassium 3.9 Chloride 102 Carbon Dioxide 30.4 Anion Gap 8 BUN 14 Creatinine 0.9 Estim Creat Clear Calc 101.4 eGFR > 60 BUN/Creatinine Ratio 16 Glucose 105 D Calculated Osmolality 279 Calcium 8.5 Corrected Calcium 8.6 Phosphorus 3.8 Magnesium 2.0 Total Bilirubin 0.9 AST 116 H ALT 90 H Alkaline Phosphatase 131 H D Total Protein 6.8 Albumin 3.9 Globulin 2.9 Albumin/Globulin Ratio 1.3 Quality Measures Quality Measures VTE prophylaxis Assessment & Plan Assessment Current Active Medications: Generic Name Dose Route Start Last Admin Trade Name Freq PRN Reason Stop Dose Admin Acetaminophen 650 mg 11/07/24 08:58 11/08/24 04:28 Acetaminophen 325 Mg Tablet PO 12/06/24 12:49 650 mg Q6H PRN Administration Fever >101.5 Albuterol/Ipratropium 3 ml 11/06/24 12:50 11/09/24 08:29 Albuterol/Ipratropium (Duoneb) Rt Brandy 3 Ml Nebu INH 12/06/24 12:59 3 ml Q6HRRT PRN Administration Shortness of breath Carvedilol 3.125 mg 11/06/24 14:45 11/09/24 08:04 Carvedilol 3.125 Mg Tablet PO 12/06/24 14:44 3.125 mg BID ROCIO Administration Enoxaparin Sodium 40 mg 11/06/24 13:00 11/09/24 08:04 Enoxaparin Sod Inj 40 Mg/0.4 Ml Syringe SC 11/20/24 12:59 40 mg QDAY ROCIO Administration Folic Acid 1 mg 11/06/24 21:00 11/09/24 08:05 Folic Acid 1 Mg Tablet PO 11/11/24 20:59 1 mg BID ROCIO Administration Furosemide 40 mg 11/08/24 14:00 Furosemide Inj 10 Mg/Ml 4ml Vial IVP 12/08/24 13:59 QDAY ROCIO Lidocaine 1 patch 11/07/24 08:17 11/07/24 08:48 Lidocaine 5% 1 Patch TOP 12/07/24 08:16 1 patch DAILY PRN Administration BACK PAIN Lisinopril 5 mg 11/09/24 10:00 11/09/24 10:15 Lisinopril 2.5 Mg Tablet PO 12/09/24 09:59 5 mg QDAY ROCIO Administration Lorazepam 0.5 mg 11/06/24 12:50 Lorazepam 2 Mg/Ml Vial IV 11/11/24 12:49 Q2HR PRN CIWA SCORE 7-13 Lorazepam 0.5 mg 11/06/24 12:50 11/07/24 03:50 Lorazepam 0.5 Mg Tablet PO 11/11/24 12:49 0.5 mg Q4HR PRN Administration CIWA Score 2-6 Lorazepam 1 mg 11/06/24 12:50 Lorazepam 2 Mg/Ml Vial IV X1 PRN Breakthrough Agitation Lorazepam 2 mg 11/06/24 12:50 Lorazepam 0.5 Mg Tablet PO 11/11/24 12:49 Q4HR PRN CIWA SCORE 12-15 Lorazepam 1 mg 11/06/24 12:55 Lorazepam 2 Mg/Ml Vial IV 11/11/24 12:54 Q2HR PRN CIWA SCORE 14-19 Ondansetron HCl 4 mg 11/06/24 12:50 Ondansetron Inj 2 Mg/Ml Inj 2 Ml IV 12/06/24 12:49 Q6H PRN NAUSEA OR VOMITING Protocol Pantoprazole Sodium 40 mg 11/07/24 12:00 11/09/24 08:03 Pantoprazole Inj 40 Mg Vial IV 12/07/24 11:59 40 mg QDAY ROCIO Administration Thiamine HCl 100 mg 11/07/24 15:45 11/09/24 08:04 Thiamine Inj 100 Mg/Ml Vial 2 Ml IVP 11/11/24 15:44 100 mg QDAY ROCIO Administration Plan Assessment and Plan: Mr Najera is a 64-year-old male with past medical history of hypertension, asthma, chronic tobacco use and seasonal allergies who presented to the ED for worsening shortness of breath, swelling of his face and lower extremities. #Hypervolemic hypotonic hyponatremia, resolved Presented with sodium of 122 and serum osmol of 246. Sodium corrected to 140 in 24 hours. Correction by 18 mmol/L Patient's underlying etiology multifactorial hypervolemia secondary to CHF and beer potomania, patient admits to drinking about 4 cans of beer daily. Denies use of HCTZ. Patient was started on D5W 100 cc/h yesterday which was uptitrated to 150 cc/h, patient was also given desmopressin 2 mcg x 2 yesterday, patient sodium did downtrend to 136. - Agree with diuresis - Monitor sodium daily - Agree with fluid restriction 1800 cc, strict DEISY's - Cardiology is consulted by primary team, pending echocardiogram # Rule out CHF versus MASLD #Chronic Alcohol use #Transaminitis #Hypertension - Management per primary team Case discussed with Attending Dr. Muñoz. Sandra Oliver PGY1 Disclaimer: This note was dictated by speech recognition. Minor errors in concrete batch plant operator may be present due to voice recognition software. Attending Provider Attestation/Addendum Assessment and Plan: Mr Najera is a 64-year-old male with past medical history of hypertension, asthma, chronic tobacco use and seasonal allergies who presented to the ED for worsening shortness of breath, swelling of his face and lower extremities. #Hypervolemic hypotonic hyponatremia Presented with sodium of 122 and serum osmol of 246. Sodium corrected to 140 in 24 hours. Correction by 18 mmol/L Patient's underlying etiology multifactorial hypervolemia secondary to CHF and beer potomania, patient admits to drinking about 4 cans of beer daily. Denies use of HCTZ. Patient was started on D5W 100 cc/h yesterday which was uptitrated to 150 cc/h, patient was also given desmopressin 2 mcg x 2 yesterday, patient sodium did downtrend to 136. - Primary team to resume diuresis as needed - Monitor sodium daily - Agree with fluid restriction 1800 cc, strict DEISY's - Cardiology is consulted by primary team, pending echocardiogram #Chronic Alcohol use #Transaminitis #Hypertension - Management per primary team Case discussed with Attending Dr. Muñoz. Sandra Oliver PGY1 Disclaimer: This note was dictated by speech recognition. Minor errors in concrete batch plant operator may be present due to voice recognition software. Pt is seen and examined. Labs and investigations are reviewed. Agree witth assessment and plan by resident. agree with findings. Chai Muñoz MD
--- NOTE | 2024-11-09 12:14 | PC.SS ---
SS spoke to PT who states he just worked with patient and patient did well and does not need SNF and does not need HH services. Independent with ADL's. No AD.
--- NOTE | 2024-11-09 15:34 | PC.PT ---
PT eval only. Patient is xI. Patient is safe to ambulate to the bathroom and in the halls with no DME or staff assist. RN made aware.
[2024-11-09] MEDS: MELATONIN 3 MG TABLET 6 MG PO (22:56)
[2024-11-09] MEDS: DiphenhydrAMINE 25 MG CAPSULE PO (22:56)
[2024-11-10] VITALS (8 sets, daily range): BP systolic 125–150; BP diastolic 82–99; PULSE 62–80; RESP 17–21; TEMP 36.2–36.5; O2SAT 94–99
[2024-11-10 06:03] LABS: Basophils # (Auto) 0.2 Thou/mm3 (0.0-0.2); Basophils % (Auto) 2 % (0-2.5); Eosinophils # (Auto) 0.4 Thou/mm3 (0.0-0.5); Eosinophils % (Auto) 4 % (0-10); Hematocrit 45.5 % (41.0-53.0); Hemoglobin 15.5 g/dL (13.5-16.0); Immature Granulocytes % (Auto) 0 % (0-0); Immature Granulocytes Auto 0.03 Thou/mm3 (0.00-0.00); Lymphocytes # (Auto) 1.5 Thou/mm3 (1.0-4.8); Lymphocytes % (Auto) 18 % (10-50); Mean Corpuscular HGB Conc 34.1 g/dl (31.0-37.0); Mean Corpuscular Hemoglobin 30.5 pg (25.0-35.0); Mean Corpuscular Volume 90 fL (80-100); Monocytes # (Auto) 1.1 Thou/mm3 (0.0-0.8); Monocytes % (Auto) 12 % (0-12); Neutrophils # (Auto) 5.5 Thou/mm3 (1.8-7.7); Neutrophils % (Auto) 64 % (37-80); Nucleated Red Blood Cell % 0 /100 WBC (0); Platelet Count 211 Thou/mm3 (140-440); RDW Standard Deviation 49.7 fL (35.1-43.9); Red Blood Count 5.08 Miln/mm3 (4.50-5.90); White Blood Count 8.7 Thou/mm3 (3.8-10.6)
[2024-11-10 06:26] LABS: Alanine Aminotransferase 91 U/L (10-49); Albumin, Serum 3.9 gm/dL (3.4-4.8); Albumin/Globulin Ratio 1.3 (1.2-2.2); Alkaline Phosphatase 114 U/L (46-116); Anion Gap 9 (7-16); Aspartate Amino Transferase 96 U/L (0-34); BUN/Creatinine Ratio 16 Ratio (12-20); Bilirubin,Total 0.9 mg/dL (0.3-1.2); Blood Urea Nitrogen 16 mg/dL (9-23); Calcium 8.3 mg/dL (8.3-10.6); Calcium (Corrected) 8.4 mg/dL (8.5-10.1); Carbon Dioxide 29.3 mMol/L (20.0-31.0); Chloride 103 mMol/L (98-107); Estimated Creatinine Clearance 89.1 mL/min (>60); Globulin 2.9 gm/dL (2.3-3.5); Glucose 109 mg/dL (74-106); Osmolality,Calculated 283 (275-295); Potassium 4.2 mMol/L (3.4-5.1); Sodium 141 mMol/L (136-145); Total Protein 6.8 gm/dL (5.7-8.2); eGFR > 60 See Note
--- NOTE | 2024-11-10 08:09 | ECHO_ITS ---
Transthoracic Echo Report Ht (in): 71 Wt (lb): 212 Exam Location: [facility] Status: Inpatient Tax Compliance Officer: LARISSA Bliss^^^^ Indications: Procedure Performed: BP: / HR: 93 Technical Quality: Fair MEASUREMENTS (Male / Female) Normal Values 2D ECHO LV Diastolic Diameter PLAX 5.0 cm 4.2 - 5.9 / 3.9 - 5.3 cm LV Systolic Diameter PLAX 3.5 cm IVS Diastolic Thickness 1.3 cm 0.6 - 1.0 / 0.6 - 0.9 cm LVPW Diastolic Thickness 1.1 cm 0.6 - 1.0 / 0.6 - 0.9 cm LV Relative Wall Thickness 0.5 LVOT Diameter 1.7 cm Aortic Root Diameter 3.3 cm LA Systolic Diameter LX 4.9 cm 3.0 - 4.0 / 2.7 - 3.8 cm LA Volume Index 31.1 cm?/m? 16 - 28 cm?/m? Ascending Aorta Diameter 3.2 cm DOPPLER AV Peak Velocity 136.3 cm/s AV Peak Gradient 7.4 mmHg AV Mean Gradient 5.5 mmHg AV Velocity Time Integral 32.6 cm AI Peak Velocity 227.0 cm/s AI Peak Gradient 20.6 mmHg AI Pressure Half Time 588.0 ms LVOT Peak Velocity 73.2 cm/s LVOT Peak Gradient 2.1 mmHg LVOT Velocity Time Integral 16.4 cm LVOT Cardiac Index 1561.6 cm?/min?m? AV Area Cont Eq vti 1.1 cm? AV Area Cont Eq pk 1.2 cm? MV Peak Velocity 100.0 cm/s MV Peak Gradient 4.0 mmHg MV Mean Velocity 59.3 cm/s MV Mean Gradient 2.0 mmHg MV Area PHT 4.3 cm? Mitral E Point Velocity 93.5 cm/s LV E' Lateral Velocity 9.8 cm/s Mitral E to LV E' Lateral Ratio 9.6 LV E' Septal Velocity 8.3 cm/s Mitral E to LV E' Septal Ratio 11.3 TR Peak Velocity 265.0 cm/s TR Peak Gradient 28.1 mmHg PV Peak Velocity 102.0 cm/s PV Peak Gradient 4.2 mmHg RVOT Peak Velocity 45.1 cm/s FINDINGS Left Ventricle The left ventricular wall thickness is mildly increased. . There is grade III diastolic dysfunction of the left ventricle (restrictive filling pattern). The left ventricular ejection fraction is normal, estimated at 55-60%. Right Ventricle The right ventricle is normal in size and systolic function. The estimated right ventricular systolic pressure, 38 mmHg. Left Atrium The left atrium is normal by two-dimensional, color flow and Doppler imaging with no structural abnormalities, no thrombus formation present. Right Atrium The right atrium is normal by two-dimensional imaging, color flow and Doppler imaging with no structural abnormalities, no thrombus formation present. Atrial Septum The interatrial septum appears normal with no evidence of a shunt. Aorta The aorta is normal by two-dimensional, color flow and Doppler interrogation. Mitral Valve Mild mitral regurgitation. Mild mitral annular calcification. Aortic Valve Aortic valve sclerosis. Diffuse calcification of the aortic valve. Trace to mild aortic valve regurgitation. Tricuspid Valve There is mild tricuspid valve regurgitation. Pulmonic Valve Trivial pulmonic valve regurgitation. Vessels The pulmonary artery appears normal. The inferior vena cava pulmonary and hepatic veins appear normal. Pericardium The pericardium is normal by two-dimensional imaging. There is no significant pericardial effusion. CONCLUSIONS Indication: R/o CHF Normal LV size and function with an estimated EF 55 to 60%.. Mild LVH Diastolic function present but cannot be graded because of the atrial fibrillation. Normal RV size and function with estimated RVSP mildly elevated at 38 mmHg. Mild MR, TR and mild AI trace AI. No pericardial effusion Ronen Faustin (Electronically Signed) Final Date: 10 Nov 2024 13:47
[2024-11-10] MEDS: ENOXAPARIN SOD INJ 40 MG/0.4 ML SYRINGE SC (08:17)
[2024-11-10] MEDS: CALCIUM CARBONATE 600 MG TABLET PO (08:17)
[2024-11-10] MEDS: carVEDILOL 3.125 MG TABLET PO (08:18)
[2024-11-10] MEDS: Lisinopril 2.5 MG TABLET 5 MG PO ×2 (08:18→11:02)
[2024-11-10] MEDS: FOLIC ACID 1 MG TABLET PO (08:18)
[2024-11-10] MEDS: FUROSEMIDE INJ 10 MG/ML 4ML VIAL 40 MG IVP (08:19)
[2024-11-10] MEDS: THIAMINE INJ 100 MG/ML VIAL 2 ML IVP (08:20)
--- NOTE | 2024-11-10 08:32 | ESPR_ITS ---
Documentation for date of: 11/10/24 Subjective Subjective Interval history: Mr Najera is a 64-year-old male with past medical history of hypertension, asthma, chronic tobacco use and seasonal allergies who presented to the ED. Patient worsening shortness of breath, swelling of his face and lower extremities. Patient states that has been worsening for the past 7 days and it has been increasing for the past 3 days. He denies any chest pain, nausea, vomiting, diarrhea, dysuria,dizziness, lightheadedness, visual changes, with dominal distention or abdominal pain. Patient states he was very short of breath this morning when he came to the hospital, now improved. He also endorses having orthopnea increased dyspnea on exertion. Upon presentation to the ED, patient was noted to have hyponatremia with a sodium of 122 serum osmolality of 246. Per med rec, patient had hydrochlorothiazide prescribed in the past, but patient states that he does not take it. He takes amlodipine 10 mg p.o. daily with cetirizine 10 mg p.o. tablet once daily. He also has an albuterol inhaler at home. His bilirubin is also noted to be elevated at 1.6 and AST/ ALT is 74/0. Alk phos is also elevated 141. However, abdominal ultrasound is negative for any gallstones or dilated CBD or obstruction. Patient does endorse drinking 440 ounce cans of beer daily. He endorses having anxiety if he stops drinking. His last drink was yesterday. Hospitalist service was called for admission for further workup medical management of hyponatremia. Nephrology consulted in setting of hypervolemic hyponatremia. 11/07/2024: Labs and vitals reviewed, patient sodium overcorrected from 122 to 140 in 24 hours, patient was given 3 doses of IV Lasix, this morning patient does look euvolemic, on room air, has no current complaints. Ordered strict intake and output, no urine output charted from yesterday. Patient started on D5W 100 cc/h, will plan for goal sodium 130-135 today we will consider desmopressin if sodium does not downtrend. Will continue strict monitoring of sodium every 4 hours. 11/08/2024: Patient seen and examined at bedside, patient was started on D5W 100 cc/h yesterday which was uptitrated to 150 cc/h, patient was also given desmopressin 2 mcg x 2 yesterday, patient sodium did downtrend to 136 yesterday, fluids were given cautiously as there was concern of fluid overload. Patient's sodium within goal this morning, D5W discontinued. Primary team to resume diuresis as needed, patient possibly has underlying alcoholic liver disease/MASLD versus CHF causing fluid overload status. Primary team is doing further workup. Patient sodium is stable, continue to monitor daily. 11/09/2024: Patient seen and examined at bedside, sodium is stable at 140, diuresis resumed by primary team, patient is undergoing workup for fluid overload, pending echocardiogram. Patient will need MRI abdomen outpatient. Otherwise patient is stable, has no current complaint saturating well on room air. 11/10/2024: Patient seen and examined at bedside, sodium is stable at 141, sodium is stable, patient is pending echo. Post discharge patient needs to follow up in office in 1-2 weeks. Exam Vital Signs Temp Pulse Resp BP Pulse Ox O2 Del Method 97.2 F 80 17 150/99 H 97 Room Air 11/10/24 04:00 11/10/24 08:19 11/10/24 04:00 11/10/24 08:19 11/10/24 04:00 11/10/24 04:00 Narrative Exam Gen: No acute distress HEENT: NCAT, PERRLOU, Sclera anicteric, conjunctiva noninjected, oral mucosa moist without erythema Neck: Supple, full range of motion, no LAD CV: Irregular rhythm, no murmurs, rubs or gallops Resp: CTAB/L, no wheezing, rhonchi or rales GI: abdomen soft, protuberant, bowel sounds noted, no tenderness to palpation, no guarding or rebound tenderness, no organomegaly Skin: clean, dry, no rashes, lesions or ecchymosis Ext: trace pitting edema in b/l LE Neuro: A&O x3, CN II- XII intact b/l, no focal neurological deficits Objective Labs 11/10/24 04:50 11/10/24 04:50 Labs: Laboratory Results - last 24 hr 11/10/24 04:50 WBC 8.7 RBC 5.08 Hgb 15.5 Hct 45.5 MCV 90 MCH 30.5 MCHC 34.1 RDW Std Deviation 49.7 H Plt Count 211 Neut % (Auto) 64 Lymph % (Auto) 18 [place] % (Auto) 12 Eos % (Auto) 4 Baso % (Auto) 2 Neut # (Auto) 5.5 Lymph # (Auto) 1.5 [place] # (Auto) 1.1 H Eos # (Auto) 0.4 Baso # (Auto) 0.2 Immature Gran # (Auto) 0.03 H Absolute Nucleated RBC 0.00 Immature Gran % 0 Nucleated RBC % 0 Sodium 141 Potassium 4.2 Chloride 103 Carbon Dioxide 29.3 Anion Gap 9 BUN 16 Creatinine 1.0 Estim Creat Clear Calc 89.1 eGFR > 60 BUN/Creatinine Ratio 16 Glucose 109 H Calculated Osmolality 283 Calcium 8.3 Corrected Calcium 8.4 L Total Bilirubin 0.9 AST 96 H ALT 91 H Alkaline Phosphatase 114 Total Protein 6.8 Albumin 3.9 Globulin 2.9 Albumin/Globulin Ratio 1.3 Quality Measures Quality Measures VTE prophylaxis Assessment & Plan Assessment Current Active Medications: Generic Name Dose Route Start Last Admin Trade Name Freq PRN Reason Stop Dose Admin Acetaminophen 650 mg 11/07/24 08:58 11/08/24 04:28 Acetaminophen 325 Mg Tablet PO 12/06/24 12:49 650 mg Q6H PRN Administration Fever >101.5 Albuterol/Ipratropium 3 ml 11/06/24 12:50 11/09/24 08:29 Albuterol/Ipratropium (Duoneb) Rt Brandy 3 Ml Nebu INH 12/06/24 12:59 3 ml Q6HRRT PRN Administration Shortness of breath Carvedilol 3.125 mg 11/06/24 14:45 11/10/24 08:18 Carvedilol 3.125 Mg Tablet PO 12/06/24 14:44 3.125 mg BID ROCIO Administration Enoxaparin Sodium 40 mg 11/06/24 13:00 11/10/24 08:17 Enoxaparin Sod Inj 40 Mg/0.4 Ml Syringe SC 11/20/24 12:59 40 mg QDAY ROCIO Administration Folic Acid 1 mg 11/06/24 21:00 11/10/24 08:18 Folic Acid 1 Mg Tablet PO 11/11/24 20:59 1 mg BID ROCIO Administration Furosemide 40 mg 11/08/24 14:00 11/10/24 08:19 Furosemide Inj 10 Mg/Ml 4ml Vial IVP 12/08/24 13:59 40 mg QDAY ROCIO Administration Lidocaine 1 patch 11/07/24 08:17 11/07/24 08:48 Lidocaine 5% 1 Patch TOP 12/07/24 08:16 1 patch DAILY PRN Administration BACK PAIN Lisinopril 5 mg 11/09/24 10:00 11/10/24 08:18 Lisinopril 2.5 Mg Tablet PO 12/09/24 09:59 5 mg QDAY ROCIO Administration Lorazepam 0.5 mg 11/06/24 12:50 Lorazepam 2 Mg/Ml Vial IV 11/11/24 12:49 Q2HR PRN CIWA SCORE 7-13 Lorazepam 0.5 mg 11/06/24 12:50 11/07/24 03:50 Lorazepam 0.5 Mg Tablet PO 11/11/24 12:49 0.5 mg Q4HR PRN Administration CIWA Score 2-6 Lorazepam 1 mg 11/06/24 12:50 Lorazepam 2 Mg/Ml Vial IV X1 PRN Breakthrough Agitation Lorazepam 2 mg 11/06/24 12:50 Lorazepam 0.5 Mg Tablet PO 11/11/24 12:49 Q4HR PRN CIWA SCORE 12-15 Lorazepam 1 mg 11/06/24 12:55 Lorazepam 2 Mg/Ml Vial IV 11/11/24 12:54 Q2HR PRN CIWA SCORE 14-19 Melatonin 6 mg 11/09/24 22:45 11/09/24 22:56 Melatonin 3 Mg Tablet PO 12/09/24 22:44 6 mg HS ROCIO Administration Ondansetron HCl 4 mg 11/06/24 12:50 Ondansetron Inj 2 Mg/Ml Inj 2 Ml IV 12/06/24 12:49 Q6H PRN NAUSEA OR VOMITING Protocol Thiamine HCl 100 mg 11/07/24 15:45 11/10/24 08:20 Thiamine Inj 100 Mg/Ml Vial 2 Ml IVP 11/11/24 15:44 100 mg QDAY ROCIO Administration Plan Assessment and Plan: Mr Najera is a 64-year-old male with past medical history of hypertension, asthma, chronic tobacco use and seasonal allergies who presented to the ED for worsening shortness of breath, swelling of his face and lower extremities. #Hypervolemic hypotonic hyponatremia, resolved Presented with sodium of 122 and serum osmol of 246. Sodium corrected to 140 in 24 hours. Correction by 18 mmol/L Patient's underlying etiology multifactorial hypervolemia secondary to CHF and beer potomania, patient admits to drinking about 4 cans of beer daily. Denies use of HCTZ. Patient was started on D5W 100 cc/h yesterday which was uptitrated to 150 cc/h, patient was also given desmopressin 2 mcg x 2 yesterday, patient sodium did downtrend to 136. - Agree with diuresis - Follow up outpatient with patent prosecution attorney in 1-2 weeks. - Monitor sodium daily - Agree with fluid restriction 1800 cc, strict DEISY's - Cardiology is consulted by primary team, pending echocardiogram # Rule out CHF versus MASLD #Chronic Alcohol use #Transaminitis #Hypertension - Management per primary team Case discussed with Attending Dr. Muñoz. Sandra Oliver PGY1 Disclaimer: This note was dictated by speech recognition. Minor errors in nonfarm animal caretaker may be present due to voice recognition software. Attending Provider Attestation/Addendum Pt is seen and examined labs are reviewed Agree with assessment and plan by resident Chai Muñoz MD
[2024-11-10] MEDS: APIXABAN 2.5 MG TABLET 5 MG PO (11:03)
--- NOTE | 2024-11-10 14:52 | ESDS_ITS ---
<Statement entered by Neetu Keller DO - 11/11/24 07:42> I, Neetu Keller DO, attest that I was physically present for the [place]bett portions of the service and evaluated the patient with the resident and I reviewed and discussed the case with the resident and agree with the resident's findings and plans of care as documented above <Statement entered by Boby Stewart MD - 11/10/24 15:27> Patient was examined with the team including attending physician. Note reviewed, I agree with the discharge plan as documented. - Boby Stewart MD PGY2 Disclaimer: The document may contain phonetic/typographic errors due to voice recognition software. These errors are purely due to imperfections in the software program and should not be misconstrued in any way to compromise the substance of the patient's medical care during this visit. Planned Discharge Date 11/10/24 DS: Providers Provider Date of admission: 11/06/24 13:26 Primary care physician: BRITTANI Wright Admitting Provider: Neetu Keller DO Attending Provider on Admission: Neetu Keller DO Consults: 11/06/24 12:57 Consult to Nephrology Stat Comment: hyponatremia Consulting Provider: Chai Muñoz 11/07/24 08:16 Referral Physical Therapy Routine Comment: Physician Instructions: 11/07/24 09:53 Consult to Cardiology Routine Comment: Consulting Provider: Yeison Hodge Attending Provider on DC: Espinoza Chaves MD Discharging Provider: Espinoza Chaves MD DS: Diagnosis Problem List Completed Was Problem List Reviewed/Reconciled?: Yes Hospital Course Hospital Course Hospital course: 64-year-old male with past medical history of hypertension, asthma, alcohol use disorder presented to the ED on 11/06 with episode of shortness of breath, swelling of his face and lower extremities. In the ED, patient found to have hyponatremia with a sodium 122 and serum osmolality of 246. Patient was admitted for management of hyponatremia. During admission process patient found to have atrial fibrillation on EKG. Nephrology was consulted regarding hypervolemic hyponatremia; moreover, suspicion was liver versus cardiac etiology. Patient's sodium levels improved with fluid restriction and diuretics which were later held. Cardiology was also consulted for echo and EKG showing atrial fibrillation. During admission, patient also ported pulsatile mass in his abdomen as such ultrasound for AAA was completed and ruled out any concerning findings. Echocardiogram showed preserved ejection fraction and mild LVH with some diastolic dysfunction present with mildly elevated RVSP. Patient's hyponatremia likely contributed from alcohol induced liver injury. Patient counseled on cessation of alcohol several morning, during hospitalization CIWA have been between 0 and 1. Patient will be discharged following strict instructions. Please take Coreg 3.125 mg by mouth twice a day Please take Lasix 40 mg by mouth once a day Please take Lisinopril 10 mg by mouth once a day Follow-up with PCP at [facility] [[email or web address]] [address] [place] [address] Please follow-up with chute loader, Dr. Muñoz, within 2 weeks after discharge for low sodium levels If your symptoms worsen or if you develop new chest pain, shortness of breath, dizziness or bleeding - please come back to the ED immediately Hospital Diagnosis: #Hypervolemic hypotonic hyponatremia - resolved #Anasarca - improving #Alcohol use disorder #Atrial Fibrillation NVR #Alcohol induced liver injury #Metabolic associated steatotic liver disease #Elevated liver enzymes #Primary Hypertension #Possible AAA, ruled out Espinoza Chaves, PGY-1 Status at Discharge Overall status at discharge: patient is progressing back to baseline Time Spent with Patient Time attestation: Total time spent providing and/or coordinating discharge services: 45 minutes Time spent: Greater than 30 minutes Exam Vital Signs Temp Pulse Resp BP Pulse Ox O2 Del Method 97.1 F 75 18 140/86 H 94 L Room Air 11/10/24 11:46 11/10/24 11:53 11/10/24 11:46 11/10/24 11:46 11/10/24 11:46 11/10/24 11:46 Narrative Exam Constitutional Alert, oriented x3. Obese HEENT Vision grossly intact. Patent nares. Trachea midline. Respiratory Chest normal on inspection and clear to auscultation bilaterally. Cardiovascular S1 and S2 audible, irregularly irregular. No murmurs or carotid bruit. No gross JVD. Abdominal Soft, protuberant, non tender to palpation in all quadrants. BS + Genitourinary No bladder tenderness, no flank pain. Normal to palpation. Musculoskeletal Extremities tone within normal limits. No LE edema. Neurological CN II - XII grossly intact. Extremity motor and sensation grossly intact. Skin Warm, dry and intact. No apparent lesions. Psychiatric Patient has a good affect, is cooperative. Discharge Plan Plan Patient Disposition: HOME (Self Care) Patient condition on transfer: Stable Care Plan Goals: Please take Coreg 3.125 mg by mouth twice a day Please take Lasix 40 mg by mouth once a day Please take Lisinopril 10 mg by mouth once a day Follow-up with PCP at [facility] [[email or web address]] [address] [place] [address] Please follow-up with chute loader, Dr. Muñoz, within 2 weeks after discharge for low sodium levels If your symptoms worsen or if you develop new chest pain, shortness of breath, dizziness or bleeding - please come back to the ED immediately Prescriptions/Referrals Prescriptions/Med Rec: New carvedilol 3.125 mg Tablet 3.125 mg PO BID 30 Days Qty: 60 0RF Eliquis 5 mg tablet 5 mg PO BID 30 Days Qty: 60 0RF furosemide 40 mg Tablet 40 mg PO QDAY 30 Days Qty: 30 0RF lisinopril 10 mg tablet 10 mg PO QDAY 30 Days Qty: 30 0RF Continued cetirizine 10 mg tablet 10 mg PO 1XD Patient Comments: TAKE 1 TABLET BY MOUTH ONCE DAILY Discontinued methocarbamol [Robaxin-750] 750 mg tablet 750 mg PO TID Qty: 10 0RF naproxen 500 mg tablet 500 mg PO BID PRN (Reason: pain) Qty: 20 0RF amlodipine 10 mg tablet 10 mg PO 1XD Patient Comments: TAKE 1 TABLET BY MOUTH ONCE DAILY Referrals: Chai Muñoz MD [Physician] - Buffy Grace FNP [Primary Care Provider] - Patient/Caregiver Discharge Instructions Education Materials: Low-Salt Choices, Taking a Diuretic, Understanding Atrial Fibrillation Print Language: French Stand Alone Forms: Renu Award Info., Patient Portal Info Letter Discharge Order Discharge Orders: Discharge (Routine); Ordered 11/10/24 Ordered By: Espinoza Chaves Quality Discharge Quality Measures VTE prophylaxis
[2024-11-16 07:29] LABS: Osmolality, Urine* <50 mOsm/kg (50-1200)
== END 2024-11-10 16:00 | disposition home or self-care (01) | DRG 426 ==
LOC: SERX 13:25 → SERHOLD 13:30 → S3NX 11-09 05:33
PROVIDERS: Nurse Practitioner Family; Physician Assistant; Student in an Organized Health Care Education/Training Program; Admitting Provider Internal Medicine; Emergency Provider Podiatrist Foot & Ankle Surgery; PCP Registered Nurse; Visit Provider Internal Medicine
DX: E87.1 Hypo-osmolality and hyponatremia (principal); J45.909 Unspecified asthma, uncomplicated; I11.0 Hypertensive heart disease with heart failure; I50.9 Heart failure, unspecified; K70.9 Alcoholic liver disease, unspecified; R00.1 Bradycardia, unspecified; F17.200 Nicotine dependence, unspecified, uncomplicated; F10.10 Alcohol abuse, uncomplicated; I48.91 Unspecified atrial fibrillation; I49.3 Ventricular premature depolarization; F41.9 Anxiety disorder, unspecified; K76.6 Portal hypertension; Z79.899 Other long term (current) drug therapy; Z88.8 Allergy status to other drugs, medicaments and biological substances
CPT/HCPCS: 36415; 71045; 71046; 76705; 76706; 80053; 82570; 83036; 83735; 83880; 83935; 84100; 84295; 84300; 84439; 84443; 84484; 84540; 85025; 85730; 87811; 93005; 93225; 93306; 94640; 96361; 96372; 96374; 96376; 97161; 99285; A9270; J1100; J1650; J1938; J2470; J2597; J3411; J3490; J7030; J7070

== ENCOUNTER 2025-02-19 06:14 | Emergency (ER) | payer MEDICAID, SELFPAY ==
[2025-02-19 06:14] VITALS: BMI 30.4
[2025-02-19 06:50] VITALS: BP 112/76; PULSE 65; RESP 16; TEMP 36.9; O2SAT 97
--- NOTE | 2025-02-19 07:48 | PD.EDSKIN ---
ED Skin Abcess FB-RME/HPI General Chief complaint: Skin/Abscess/Foreign Body Stated complaint: LUMP ON BACK X2 MON. PAIN WROSENING Time Seen by Provider: 02/19/25 06:56 Source: patient Arrival date/time: 02/19/25 06:14 Mode of arrival: ambulatory Limitations: no limitations RME / HPI RME / HPI narrative: Patient is a 64-year-old male that to the emergency permit concerns for swelling to his right lateral back. Patient states that he has had the swelling for many weeks, has been evaluated by his primary care doctor however is pending referral to see a gasoline power shovel operator. Patient denies any fevers chills nausea vomiting history of IV drug use trauma. Patient has a history of diabetes, A-fib he is on Eliquis. Does not have a history of recurrent skin infections. Patient is concerned because the swelling on his back causes him pain with movement and it is difficult to sleep and also work. He works in the [employer]. Patient does not have any allergies to medications. Related Data Home Medications ?Medication ?Instructions ?Recorded ?Confirmed cetirizine 10 mg tablet 10 mg PO 1XD 11/06/24 11/06/24 Previous Rx's ?Medication ?Instructions ?Recorded sulfamethoxazole 800 1 tab PO Q12H #10 tabs 02/19/25 mg-trimethoprim 160 mg tablet (Bactrim DS) Allergies Allergy/AdvReac Type Severity Reaction Status Date / Time rivastigmine Allergy Severe BLISTERS/RA Verified 02/19/25 06:17 SH/ITCHING ED Exam General Limitations: Present no limitations General appearance: Present alert Head Head exam: Present atraumatic Eye Eye exam: Present normal appearance ENT ENT exam: Present normal exam Neck Neck exam: Present normal inspection Chest Chest inspection: Present normal inspection Respiratory Respiratory exam: Present normal lung sounds bilaterally Cardiovascular Cardiovascular exam: Present regular rate and normal rhythm Abdominal Exam Abdominal exam: Present soft; Absent distention Extremities Exam Extremities exam: Present normal inspection Back Exam Back exam: Absent normal inspection (Patient with 3 cm raised fluctuant area at the right scapula, no surrounding erythema, crepitus, minimal tenderness to palpation, no bruit thrill or pulse appreciated) Skin Skin exam: Present warm and dry (See back) Course Quality Measures none Orders Category Date Time Status Lidocaine 1% 20 ml [Xylocaine 1% 20 ML] Med 02/19/25 07:48 Discontinued 10 ml INFL X1 ONE Trimethoprim/Sulfa 160/800 Ds [Bactrim Ds] Med 02/19/25 09:10 Discontinued 1 tab PO X1 ONE Vital Signs Vital signs: Vital Signs Temperature 98.4 F 02/19/25 06:50 Pulse Rate 65 02/19/25 06:50 Respiratory Rate 16 02/19/25 06:50 Blood Pressure 112/76 02/19/25 06:50 Pulse Oximetry (%) 97 02/19/25 06:50 Oxygen Delivery Method Room Air 02/19/25 06:50 Skin / Abscess / Foreign Body MDM Narrative MDM Narrative:: Patient is a 64-year-old male is in the emerged from with concerns for raised fluctuant lesion on the right lateral upper back. Vital signs and exam as above. Concern for abscess, less likely cellulitis given no surrounding erythema. No evidence of necrotizing infection given skin intact, no fluctuance no crepitus. Performed [id number] ultrasound, identified a area of hypoattenuation, concerning for abscess. Color Doppler did not identify any blood flow less likely vascular malformation. Patient provided consent, understands risk benefit of bleeding, infection, severe disability with performing of the incision and drainage however patient states that the symptoms are becoming very difficult for him to deal with and would like to move forward with an incision and drainage. Patient does not have any allergies to medications. Patient provided consent for performing an incision and drainage. I&D performed without any complications. Approximately 10 cc of purulent material with minimal blood was expressed. Patient tolerated procedure well. Procedure note The skin was prepped with chloraprep. Using 3 cc of 1% lidocaine without epinephrine, the abscess cavity was infiltrated.? An I and D tray was opened and at bedside.? 11 blade was used to make a 2 mm incision, approximately 10 cc of pus was expressed. Patient data External records reviewed:: [facility] previous records Clinical information provided by:: patient Social determinants that could affect healthcare access:: other (specify) (Patient speaks ) Patient has the following chronic illnesses:: Diabetes How is presenting disease/condition affected by chronic disease/condition?: exacerbated by Evaluation data The following diagnostics were reviewed and interpreted by me:: radiology exam(s) Lab and/or radiology exams considered but not ordered:: None Interpretation Summary: See MDM Medications / Prescriptions Medications or Prescriptions considered but not ordered:: None Medication administrations:: Medication Administration History Discontinued Medications Lidocaine HCl (Lidocaine Hcl 1% 20 Ml Vial) 10 ml INFL X1 ONE Stop: 02/19/25 07:49 Last Admin: 02/19/25 08:22 Dose: 10 ml Documented By: [facility] Comments: USED BY Trimethoprim/Sulfamethoxazole (Trimethoprim/Sulfa 160/800 Ds Tablet) 1 tab PO X1 ONE Stop: 02/19/25 09:11 See above Consultations Consultation(s) initiated? (list below): No Diagnosis Skin/Abscess Differential Diagnosis: abscess of skin or subcutaneous tissue and cellulitis Most likely diagnosis given after review of the tests above:: Abscess Admission Indicated Admission indicated?: not indicated Admission Request Was there a request for admission?: No Disposition Plan Disposition Plan: Discharge Discharge Attestation Discharge Attestation: The patient and all family members were given an opportunity to ask questions and understood the discharge instructions. Discharge instructions specifically effects, indications for sooner follow up or return to the emergency department, and the expected course of current diagnosis. Patient condition: Stable Discharge Plan Plan Patient Disposition: HOME (Self Care) Prescriptions/Referrals Prescriptions/Med Rec: New sulfamethoxazole-trimethoprim [Bactrim DS] 800-160 mg tablet 1 tab PO Q12H Qty: 10 0RF No Action cetirizine 10 mg tablet 10 mg PO 1XD Patient Comments: TAKE 1 TABLET BY MOUTH ONCE DAILY Problem List Clinical Impression: Abscess Patient/Caregiver Discharge Instructions Education Materials: Abscess Drainage Additional Instructions: Por favor moody antibiotico luiz la formula, y rainer a lay medico de cabecera dentro de 1-2 nicole. Por favor monitorear para signos de infeccion que ervin emperorando, fiebre u otro sintoma de preocupacion. Print Language: Mongolian Stand Alone Forms: Renu Award Info., Patient Portal Info Letter
[2025-02-19] MEDS: LIDOCAINE HCL 1% 20 ML VIAL 10 ML INFL (08:22)
[2025-02-19] MEDS: ACETAMINOPHEN 325 MG TABLET 650 MG PO (10:01)
[2025-02-19] MEDS: TRIMETHOPRIM/SULFA 160/800 DS TABLET 1 TAB PO (10:01)
== END 2025-02-19 10:10 | disposition home or self-care (01) ==
LOC: SERX 10:17
PROVIDERS: Emergency Provider Emergency Medicine; PCP Registered Nurse
DX: L02.212 Cutaneous abscess of back [any part, except buttock and flank] (principal); E11.9 Type 2 diabetes mellitus without complications; I48.91 Unspecified atrial fibrillation; Z79.01 Long term (current) use of anticoagulants
CPT/HCPCS: 10060; 99282; J3490; A9270